=== PATIENT | male | born 1985 | race Caucasian/White ===

== ENCOUNTER 2024-05-08 13:32 | Inpatient (IN) | payer MEDICAID, OTHER ==
[2024-05-08] VITALS (7 sets, daily range): BP systolic 97–129; BP diastolic 63–76; PULSE 95–125; RESP 11–29; TEMP 98.7; O2SAT 98–100
[~2024-05-08] VITALS: Ht 185.4 cm; Wt 82.7 kg
[2024-05-08] MEDS: MIDAZOLAM DRIP 50 mg/50mL 50 ML IV ONE (13:40)
[2024-05-08] MEDS: ETOMIDATE (2MG/ML) 20ML VIAL IV ONE ×2 (13:45)
[2024-05-08] MEDS: SUCCINYLCHOLINE CHLORIDE 20 MG/ML 10ML VIAL IV ONE ×2 (13:45)
[2024-05-08] MEDS: MIDAZOLAM DRIP 50 mg/50mL 50 ML IV SCH (13:45)
[2024-05-08] MEDS ORDERED: MIDAZOLAM DRIP 50 mg/50mL 50 ML IV SCH (13:45)
[2024-05-08] MEDS: SODIUM CHLORIDE 0.9% 1,000 ML IVB ONE (14:06)
[2024-05-08] MEDS: PROPOFOL 100 ML IV ONE (14:21)
[2024-05-08] MEDS: PROPOFOL 100 ML IV SCH (14:23)
[2024-05-08 14:33] LABS: Amphetamine Screen, Urine Neg (NEGATIVE)
[2024-05-08 14:34] LABS: Base Excess -12.3 mmol/L (-2.0-2.0)
[2024-05-08 14:34] LABS: Barbiturate Scree,Urine Neg (NEGATIVE); Benzodiazephine Screen, Urine Neg (NEGATIVE); Cannabinoid Screen, Urine Pos (NEGATIVE); Cocaine Screen, Urine Neg (NEGATIVE); Opiate Scree,Urine Neg (NEGATIVE); Phencyclidine Screen, Urine Neg (NEGATIVE)
[2024-05-08 14:51] LABS: Urine Bacteria FEW /hpf (None Seen); Urine Blood 2+ /uL (Negative); Urine Clarity Clear (Clear); Urine Color Colorless (Yellow); Urine Mucus FEW (None Seen); Urine Protein, UAD 1+ (Negative); Urine Specific Gravity 1.013 (1.001-1.035); Urine Urobilinogen Normal (Negative); Urine WBC 1 /hpf (0 - 3)
[2024-05-08 15:08] LABS: Acetaminophen < 2.0 UG/ML (10.0-20.0)
[2024-05-08 15:09] LABS: Alanine Aminotransferase 69 U/L (7-40); Albumin 5.3 g/dL (3.2-4.8); Alkaline Phosphatase 70 U/L (46-116); Anion Gap 20 (5-15); Aspartate Aminotransferase 44 U/L (13-40); BUN/Creatinine Ratio 10.1 (10.0-20.0); Blood Alcohol < 3.0 mg/dL (<10); Blood Urea Nitrogen 13 mg/dL (9-23); Calcium 9.5 mg/dL (8.5-10.1); Carbon Dioxide 16 mmol/L (20-30); Chloride 105 mmol/L (98-107); Glucose 124 mg/dL (74-106); Magnesium 2.4 mg/dL (1.6-2.6); Potassium 4.3 mmol/L (3.5-5.1); Sodium 141 mmol/L (136-145)
[2024-05-08 15:10] LABS: Bilirubin, Total 0.5 mg/dL (0.2-1.0); Total Protein 8.3 g/dL (5.7-8.2)
[2024-05-08 15:18] LABS: Lactic Acid w/Reflex 12.9 mmol/L (0.4-2.0)
[2024-05-08 15:23] LABS: INR 1.03 (0.9-1.15); Prothrombin Time 10.9 sec (9.3-11.8)
[2024-05-08] MEDS: fentaNYL Drip 2500mCg/250mlNS 250 ML IV SCH (15:28)
[2024-05-08 15:30] LABS: Salicylate < 3.0 mg/dL (2.8-20.0)
[2024-05-08 15:42] LABS: Hematocrit 49.2 % (41.0-53.0); Hemoglobin 16.2 g/dL (13.5-17.5); Mean Corpuscular Hemoglobin 31.3 pg (28.0-32.0); Mean Corpuscular Volume 94.9 fL (80.0-100.0); Red Blood Cells 5.18 10^6/uL (4.5-5.90); Red Cell Distribution Width 13.6 % (11.8-14.3); White Blood Cell 25.8 10^3/uL (4.4-10.8)
[2024-05-08 15:58] LABS: Basophils % (manual) 0 (0.0-2.0); Blast Cells 0; Eosinophils % (manual) 0 (0-7); Metamyelocytes % 0; Myelocytes % 0; Promyelocytes % 0; Reactive Lymphocytes 0
[2024-05-08] MEDS: PIPERACILLIN-TAZOB 3.375GM 100 ML IV ONE (16:03)
[2024-05-08 17:22] LABS: Band Neutrophils % (manual) 3; Lymphocytes % (manual) 14 (10.0-50.0); Monocytes % (manual) 1 (0-12); Platelet Estimate Adequate
[2024-05-08 18:17] LABS: Base Excess -6.7 mmol/L (-2.0-2.0)
[2024-05-08] MEDS ORDERED: MORPHINE SULFATE INJ 2 MG/ml SYRG IV PRN (18:30)
[2024-05-08] MEDS ORDERED: NITROGLYCERIN 0.4 MG SL TAB SL PRN (18:30)
[2024-05-08] MEDS ORDERED: ONDANSETRON HCL 4 MG/2 ML VIAL IV PRN (18:30)
[2024-05-08 18:53] LABS: Hematocrit 45.3 % (41.0-53.0); Hemoglobin 15.3 g/dL (13.5-17.5); Mean Corpuscular Hemoglobin 31.4 pg (28.0-32.0); Mean Corpuscular Hgb Conc. 33.7 g/dL (32.0-36.0); Mean Corpuscular Volume 93.2 fL (80.0-100.0); Red Blood Cells 4.86 10^6/uL (4.5-5.90); Red Cell Distribution Width 13.5 % (11.8-14.3); White Blood Cell 27.5 10^3/uL (4.4-10.8)
[2024-05-08 18:56] LABS: Basophils % (manual) 0 (0.0-2.0); Blast Cells 0; Eosinophils % (manual) 0 (0-7); Metamyelocytes % 0; Myelocytes % 0; Promyelocytes % 0; Reactive Lymphocytes 0
[2024-05-08 19:15] LABS: Alanine Aminotransferase 57 U/L (7-40); Albumin 4.6 g/dL (3.2-4.8); Alkaline Phosphatase 54 U/L (46-116); Anion Gap 9 (5-15); Aspartate Aminotransferase 43 U/L (13-40); BUN/Creatinine Ratio 8.6 (10.0-20.0); Blood Urea Nitrogen 10 mg/dL (9-23); Calcium 9.2 mg/dL (8.5-10.1); Carbon Dioxide 20 mmol/L (20-30); Chloride 110 mmol/L (98-107); Creatine Kinase IFCC 387 U/L (46-171); Glucose 83 mg/dL (74-106); Potassium 4.3 mmol/L (3.5-5.1); Sodium 139 mmol/L (136-145)
[2024-05-08 19:16] LABS: Bilirubin, Total 1.1 mg/dL (0.2-1.0); Total Protein 7.3 g/dL (5.7-8.2)
[2024-05-08 19:25] LABS: Lactic Acid w/Reflex 2.3 mmol/L (0.4-2.0)
[2024-05-08] MEDS: levETIRAcetam 1000 mg/100ml 100 ML IV ONE (19:57)
[2024-05-08] MEDS: SODIUM CHLORIDE 0.9% 2,400 ML IV ONE (19:58)
[2024-05-08 20:16] LABS: Band Neutrophils % (manual) 2; Lymphocytes % (manual) 6 (10.0-50.0); Monocytes % (manual) 8 (0-12); Platelet Estimate Adequate
[2024-05-08] MEDS ORDERED: LORazepam 2MG/ML-1ML VIAL IV PRN (21:45)
[2024-05-08] MEDS: SODIUM CHLOR 0.9% PF (SALINE LOCK) 10ML VIAL/SYR IV SCH (21:58)
[2024-05-08] MEDS: LORazepam 2MG/ML-1ML VIAL IV PRN (22:03)
[2024-05-08] MEDS: LORazepam 2MG/ML-1ML VIAL ONE (22:03)
[2024-05-08] MEDS: FAMOTIDINE (10MG/ML) 2ML VL IV SCH (23:22)
[2024-05-08] MEDS: D5W/SOD CHL 0.45% 1,000 ML IV SCH (23:56)
[2024-05-09] VITALS (14 sets, daily range): BP systolic 87–113; BP diastolic 52–69; PULSE 66–106; RESP 18–21; O2SAT 100
[2024-05-09] MEDS: LORazepam MDV 2MG/ML 50 MG in SODIUM CHL 0.9% 25 ML IV SCH ×2 (00:10→09:57)
[2024-05-09] MEDS: DEXTROSE (50%) 50ML SYRG IV ONE (01:48)
[2024-05-09] MEDS: ACCU-CHEK COMFORT CURVE STRIP VI SCH (01:48)
[2024-05-09 05:20] LABS: Basophils # (auto) 0.1 10 ^3/uL (0-0.2); Basophils % (auto) 0.5 % (0.0-2.0); Eosinophils # (auto) 0 10 ^3/uL (0-0.8); Eosinophils % (auto) 0.2 % (0.0-7.0); Hematocrit 37.1 % (41.0-53.0); Hemoglobin 12.6 g/dL (13.5-17.5); Lymphocytes # (auto) 0.9 10 ^3/uL (0.4-5.4); Lymphocytes % (auto) 5.9 % (10.0-50.0); Mean Corpuscular Hemoglobin 31.4 pg (28.0-32.0); Mean Corpuscular Hgb Conc. 34.1 g/dL (32.0-36.0); Mean Corpuscular Volume 92.1 fL (80.0-100.0); Monocytes # (auto) 1.8 10 ^3/uL (0-1.3); Monocytes % (auto) 11.7 % (0.0-12.0); Neutrophils # (auto) 12.5 10 ^3/uL (1.6-8.6); Neutrophils % (auto) 81.7 % (37.0-80.0); Red Blood Cells 4.03 10^6/uL (4.5-5.90); Red Cell Distribution Width 13.6 % (11.8-14.3); White Blood Cell 15.2 10^3/uL (4.4-10.8)
[2024-05-09 05:43] LABS: Alanine Aminotransferase 40 U/L (7-40); Albumin 3.4 g/dL (3.2-4.8); Alkaline Phosphatase 38 U/L (46-116); Anion Gap 7 (5-15); Aspartate Aminotransferase 37 U/L (13-40); BUN/Creatinine Ratio 7.9 (10.0-20.0); Blood Urea Nitrogen 10 mg/dL (9-23); Calcium 7.4 mg/dL (8.5-10.1); Carbon Dioxide 19 mmol/L (20-30); Chloride 112 mmol/L (98-107); Potassium 3.7 mmol/L (3.5-5.1); Sodium 138 mmol/L (136-145)
[2024-05-09 05:44] LABS: Bilirubin, Total 0.9 mg/dL (0.2-1.0); Glucose 388 mg/dL (74-106); Total Protein 5.5 g/dL (5.7-8.2)
[2024-05-09 06:48] LABS: Base Excess -5.4 mmol/L (-2.0-2.0)
[2024-05-09] MEDS: NOREPINEPHRINE 8 MG/250ML KIT 250 ML IV SCH (07:45)
[2024-05-09] MEDS: ASPirin 325 MG TAB PO ONE (09:31)
[2024-05-09] MEDS: cefTRIAXone 1GM/50ML D5W 50 ML IV SCH (10:40)
[2024-05-09] MEDS: levETIRAcetam 500 mg/100ml 100 ML IV SCH (11:03)
[2024-05-09] MEDS: ENOXAPARIN SOD 80 MG/0.8ML SYRINGE SC SCH (11:04)
[2024-05-09] MEDS: D5W/SOD CHL 0.45% 1,000 ML IV SCH (12:26)
[2024-05-09] MEDS: LORazepam 2MG/ML-1ML VIAL IV PRN (13:41)
[2024-05-09] MEDS: levETIRAcetam 1000 mg/100ml 100 ML IV ONE (18:48)
[2024-05-09] MEDS: DEXTROSE 10% 1,000 ML IV SCH (19:56)
[2024-05-09] MEDS ORDERED: HEPARIN DRIP/D5W 100UNITS/ML 250 ML IV SCH (20:45)
[2024-05-09 21:21] LABS: INR 1.07 (0.9-1.15); Partial Thromboplastin Time 23.4 SEC (24.5-34.5); Prothrombin Time 11.3 sec (9.3-11.8)
[2024-05-09] MEDS: levETIRAcetam 1000 mg/100ml 100 ML IV SCH (21:48)
[2024-05-09] MEDS: PANTOPRAZOLE 40 MG/10 ML VIAL INJ IV SCH (21:48)
[2024-05-09] MEDS: HEPARIN DRIP/D5W 100UNITS/ML 250 ML IV SCH (22:31)
[2024-05-10] VITALS (14 sets, daily range): BP systolic 102–126; BP diastolic 60–78; PULSE 72–102; RESP 18–20; O2SAT 98–100
[2024-05-10] MEDS: diphenhdrAMINE HCL 50 MG/1 ML VL IV ONE (00:52)
[2024-05-10] MEDS: ACETAMINOPHEN 650 MG RECT SUPP PR PRN (04:34)
[2024-05-10 04:58] LABS: INR 1.07 (0.9-1.15); Partial Thromboplastin Time 27.8 SEC (24.5-34.5); Prothrombin Time 11.3 sec (9.3-11.8)
[2024-05-10 07:11] LABS: Chloride 113 mmol/L (98-107); Potassium 3.6 mmol/L (3.5-5.1); Sodium 144 mmol/L (136-145)
[2024-05-10 07:12] LABS: Anion Gap 7 (5-15); Calcium 9.1 mg/dL (8.5-10.1); Carbon Dioxide 24 mmol/L (20-30)
[2024-05-10 07:17] LABS: BUN/Creatinine Ratio 9.7 (10.0-20.0); Blood Urea Nitrogen 10 mg/dL (9-23); Glucose 85 mg/dL (74-106)
[2024-05-10 07:28] LABS: Creatine Kinase IFCC 3373 U/L (46-171)
[2024-05-10 07:30] LABS: Basophils # (auto) 0 10 ^3/uL (0-0.2); Basophils % (auto) 0.3 % (0.0-2.0); Eosinophils # (auto) 0 10 ^3/uL (0-0.8); Eosinophils % (auto) 0.2 % (0.0-7.0); Hematocrit 44.9 % (41.0-53.0); Hemoglobin 14.9 g/dL (13.5-17.5); Lymphocytes # (auto) 0.7 10 ^3/uL (0.4-5.4); Mean Corpuscular Hemoglobin 30.8 pg (28.0-32.0); Mean Corpuscular Hgb Conc. 33.3 g/dL (32.0-36.0); Mean Corpuscular Volume 92.5 fL (80.0-100.0); Monocytes # (auto) 1.9 10 ^3/uL (0-1.3); Monocytes % (auto) 13.5 % (0.0-12.0); Neutrophils # (auto) 11.6 10 ^3/uL (1.6-8.6); Nucleated Red Blood Cells % 0.1 %; Red Blood Cells 4.85 10^6/uL (4.5-5.90); Red Cell Distribution Width 13.8 % (11.8-14.3); White Blood Cell 14.3 10^3/uL (4.4-10.8)
[2024-05-10 08:08] LABS: Erythrocyte Sedimentation Rate 12 mm/hr (0-20)
[2024-05-10] MEDS: IOHEXOL 350 MG/ML 100ML IJ ONE (09:14)
[2024-05-10] MEDS: ASPirin 81 mg TAB PO SCH (09:41)
[2024-05-10] MEDS: ENOXAPARIN SOD 80 MG/0.8ML SYRINGE SC SCH (09:41)
[2024-05-11] VITALS (12 sets, daily range): BP systolic 103–141; BP diastolic 67–87; PULSE 84–106; RESP 12–24; TEMP 98.8; O2SAT 30–100
[2024-05-11] MEDS ORDERED: ASPirin 81 mg TAB PO SCH (10:00)
[2024-05-11 11:13] LABS: Base Excess 4.7 mmol/L (-2.0-2.0)
[2024-05-11] MEDS: LORazepam 2MG/ML-1ML VIAL IV ONE (12:00)
[2024-05-11 12:52] LABS: Basophils # (auto) 0 10 ^3/uL (0-0.2); Basophils % (auto) 0.2 % (0.0-2.0); Eosinophils # (auto) 0 10 ^3/uL (0-0.8); Hematocrit 37.4 % (41.0-53.0); Hemoglobin 12.6 g/dL (13.5-17.5); Lymphocytes # (auto) 0.6 10 ^3/uL (0.4-5.4); Lymphocytes % (auto) 4.2 % (10.0-50.0); Mean Corpuscular Hemoglobin 30.8 pg (28.0-32.0); Mean Corpuscular Hgb Conc. 33.7 g/dL (32.0-36.0); Mean Corpuscular Volume 91.3 fL (80.0-100.0); Monocytes # (auto) 1.3 10 ^3/uL (0-1.3); Neutrophils # (auto) 11.4 10 ^3/uL (1.6-8.6); Neutrophils % (auto) 85.6 % (37.0-80.0); Red Cell Distribution Width 13.3 % (11.8-14.3); White Blood Cell 13.3 10^3/uL (4.4-10.8)
[2024-05-11 12:54] LABS: Chloride 107 mmol/L (98-107); Potassium 2.8 mmol/L (3.5-5.1); Sodium 139 mmol/L (136-145)
[2024-05-11 12:55] LABS: Anion Gap 5 (5-15); Calcium 9.3 mg/dL (8.7-10.4); Carbon Dioxide 27 mmol/L (20-30)
[2024-05-11 13:00] LABS: Glucose 117 mg/dL (74-106)
[2024-05-11 13:01] LABS: BUN/Creatinine Ratio 5.7 (10.0-20.0); Blood Urea Nitrogen < 5 mg/dL (9-23)
[2024-05-11] MEDS: HALOPERIDOL LACTATE 5 MG/ML INJ VIAL IV PRN (20:50)
[2024-05-11] MEDS: POTASSIUM CHL 20 Meq TABLET PO ONE (22:43)
[2024-05-12] VITALS (8 sets, daily range): BP systolic 114–129; BP diastolic 73–87; PULSE 78–94; RESP 17–20; TEMP 98–99.1; O2SAT 94–99
[2024-05-12 06:05] LABS: Basophils # (auto) 0 10 ^3/uL (0-0.2); Basophils % (auto) 0.3 % (0.0-2.0); Eosinophils # (auto) 0.1 10 ^3/uL (0-0.8); Eosinophils % (auto) 0.7 % (0.0-7.0); Hematocrit 34.5 % (41.0-53.0); Hemoglobin 12.4 g/dL (13.5-17.5); Lymphocytes # (auto) 1.2 10 ^3/uL (0.4-5.4); Lymphocytes % (auto) 9.6 % (10.0-50.0); Mean Corpuscular Hemoglobin 32.3 pg (28.0-32.0); Mean Corpuscular Hgb Conc. 35.9 g/dL (32.0-36.0); Mean Corpuscular Volume 89.7 fL (80.0-100.0); Monocytes # (auto) 1.3 10 ^3/uL (0-1.3); Monocytes % (auto) 10.6 % (0.0-12.0); Neutrophils # (auto) 9.8 10 ^3/uL (1.6-8.6); Neutrophils % (auto) 78.8 % (37.0-80.0); Red Blood Cells 3.84 10^6/uL (4.5-5.90); White Blood Cell 12.5 10^3/uL (4.4-10.8)
[2024-05-12 06:09] LABS: Anion Gap 5 (5-15); Calcium 9.1 mg/dL (8.5-10.1); Carbon Dioxide 29 mmol/L (20-30); Chloride 107 mmol/L (98-107); Potassium 2.9 mmol/L (3.5-5.1); Sodium 141 mmol/L (136-145)
[2024-05-12 06:16] LABS: Glucose 99 mg/dL (74-106)
[2024-05-12 06:17] LABS: BUN/Creatinine Ratio 5.9 (10.0-20.0); Blood Urea Nitrogen < 5 mg/dL (9-23)
[2024-05-12] MEDS: POTASSIUM EFFERVESENT TAB 25 MEQ PO ONE (09:16)
[2024-05-12] MEDS: SOD CHL 0.9%/ KCL 40MEQ 1,000 ML IV ONE (09:27)
[2024-05-13 01:00] VITALS: BP 125/81; PULSE 81; RESP 18; TEMP 98.9; O2SAT 93
[2024-05-13 05:00] VITALS: BP 124/81; PULSE 79; RESP 18; TEMP 98.7; O2SAT 96
[2024-05-13 06:35] LABS: Anion Gap 8 (5-15); Calcium 9.4 mg/dL (8.5-10.1); Carbon Dioxide 27 mmol/L (20-30); Chloride 107 mmol/L (98-107); Potassium 3.5 mmol/L (3.5-5.1); Sodium 142 mmol/L (136-145)
[2024-05-13 06:41] LABS: BUN/Creatinine Ratio 6.7 (10.0-20.0); Basophils # (auto) 0 10 ^3/uL (0-0.2); Basophils % (auto) 0.5 % (0.0-2.0); Blood Urea Nitrogen 6 mg/dL (9-23); Eosinophils # (auto) 0.1 10 ^3/uL (0-0.8); Eosinophils % (auto) 1.2 % (0.0-7.0); Glucose 87 mg/dL (74-106); Hematocrit 35.5 % (41.0-53.0); Hemoglobin 12.5 g/dL (13.5-17.5); Lymphocytes # (auto) 1.1 10 ^3/uL (0.4-5.4); Lymphocytes % (auto) 11.9 % (10.0-50.0); Mean Corpuscular Hemoglobin 31.6 pg (28.0-32.0); Mean Corpuscular Hgb Conc. 35.3 g/dL (32.0-36.0); Mean Corpuscular Volume 89.6 fL (80.0-100.0); Monocytes % (auto) 10.4 % (0.0-12.0); Neutrophils # (auto) 7.1 10 ^3/uL (1.6-8.6); Red Blood Cells 3.96 10^6/uL (4.5-5.90); Red Cell Distribution Width 12.7 % (11.8-14.3); White Blood Cell 9.4 10^3/uL (4.4-10.8)
[2024-05-13 08:40] VITALS: BP 121/85; PULSE 73; RESP 16; TEMP 98.6; O2SAT 94
[2024-05-13 12:45] VITALS: BP 137/91; PULSE 66; RESP 20; TEMP 99.1; O2SAT 96
[2024-05-13] MEDS ORDERED: LEVO500T91 PO (13:46)
[2024-05-13] MEDS ORDERED: KEP500T PO (13:46)
[2024-05-13] MEDS ORDERED: CEFD300C2 PO (15:37)
[2024-05-13 16:35] VITALS: BP 132/93; PULSE 61; RESP 18; TEMP 98.8; O2SAT 97
== END 2024-05-13 19:19 | disposition home or self-care (01) | DRG 720 ==
LOC: EDBD 13:32 → ER 13:37 → TELE 18:23 → TELE-CENTR 05-11 22:57 → CENTRAL 05-13 05:01
PROVIDERS: ADMIT Nurse Practitioner Family; ATTEND Nurse Practitioner Acute Care
PROC: 5A1945Z Respiratory Ventilation, 24-96 Consecutive Hours (ICD-10-PCS; principal; 2024-05-08)
PROC: 0BH17EZ Insertion of Endotracheal Airway into Trachea, Via Natural or Artificial Opening (ICD-10-PCS; 2024-05-08)
DX: A41.89 Other specified sepsis (principal); J96.00 Acute respiratory failure, unspecified whether with hypoxia or hypercapnia; G92.8 Other toxic encephalopathy; J15.0 Pneumonia due to Klebsiella pneumoniae; G40.401 Other generalized epilepsy and epileptic syndromes, not intractable, with status epilepticus; E87.20 Acidosis, unspecified; G93.1 Anoxic brain damage, not elsewhere classified; D72.829 Elevated white blood cell count, unspecified; G89.29 Other chronic pain; M54.50 Low back pain, unspecified; E16.2 Hypoglycemia, unspecified; Z82.49 Family history of ischemic heart disease and other diseases of the circulatory system; Z80.1 Family history of malignant neoplasm of trachea, bronchus and lung; Z83.3 Family history of diabetes mellitus; Z87.891 Personal history of nicotine dependence
CPT/HCPCS: 31500; 36415; 36600; 70450; 70551; 71045; 71275; 80048; 80053; 80307; 80320; 80329; 81001; 82550; 82805; 82962; 83036; 83605; 83735; 84146; 84484; 85007; 85025; 85027; 85379; 85610; 85652; 85730; 86141; 87040; 87070; 87077; 87086; 87186; 87205; 93005; 93306; 94002; 94003; 94640; 95819; C9113; G0378; J2543; J2704; J3490; J7060

== ENCOUNTER → 2024-06-15 | Outpatient (CLI) | payer MEDICAID ==
[~2024-06-15] MED LIST: CEFD300C2 PO; KEP500T PO
[2024-06-15 06:44] LABS: Basophils # (auto) 0.1 10 ^3/uL (0-0.2); Eosinophils # (auto) 0.2 10 ^3/uL (0-0.8); Eosinophils % (auto) 3.6 % (0.0-7.0); Hemoglobin 14.4 g/dL (13.5-17.5); Lymphocytes # (auto) 1.8 10 ^3/uL (0.4-5.4); Lymphocytes % (auto) 29.2 % (10.0-50.0); Mean Corpuscular Hemoglobin 32.1 pg (28.0-32.0); Mean Corpuscular Hgb Conc. 35.2 g/dL (32.0-36.0); Mean Corpuscular Volume 91.3 fL (80.0-100.0); Monocytes # (auto) 0.5 10 ^3/uL (0-1.3); Monocytes % (auto) 8.2 % (0.0-12.0); Neutrophils # (auto) 3.7 10 ^3/uL (1.6-8.6); Nucleated Red Blood Cells % 0.1 %; Red Blood Cells 4.49 10^6/uL (4.5-5.90); Red Cell Distribution Width 13.5 % (11.8-14.3); White Blood Cell 6.3 10^3/uL (4.4-10.8)
[2024-06-15 07:13] LABS: Alanine Aminotransferase 70 U/L (7-40); Albumin 4.3 g/dL (3.2-4.8); Alkaline Phosphatase 52 U/L (46-116); Anion Gap 4 (5-15); Aspartate Aminotransferase 28 U/L (13-40); Blood Urea Nitrogen 10 mg/dL (9-23); Calcium 9.7 mg/dL (8.7-10.4); Carbon Dioxide 30 mmol/L (20-30); Chloride 105 mmol/L (98-107); Creatine Kinase IFCC 114 U/L (46-171); Glucose 64 mg/dL (74-106); Potassium 3.8 mmol/L (3.5-5.1); Sodium 139 mmol/L (136-145)
[2024-06-15 07:14] LABS: Bilirubin, Total 1.1 mg/dL (0.2-1.0); Total Protein 6.9 g/dL (5.7-8.2)
[2024-06-15 08:44] LABS: BUN/Creatinine Ratio 9.4 (10.0-20.0)
== END | disposition home or self-care (01) ==
LOC: LAB 06:28
PROVIDERS: ATTEND Internal Medicine
DX: G92.8 Other toxic encephalopathy (principal); M54.50 Low back pain, unspecified
CPT/HCPCS: 36415; 80053; 82550; 84484; 85025

== ENCOUNTER → 2024-06-22 | Outpatient (CLI) | payer MEDICAID | END | disposition home or self-care (01) | LOC: XYW 09:20 | PROVIDERS: ATTEND Internal Medicine | DX: I21.A1 Myocardial infarction type 2 (principal) | CPT/HCPCS: 93306 ==

== ENCOUNTER → 2024-09-04 | Outpatient (CLI) | payer MEDICAID | END | disposition home or self-care (01) | LOC: Rad HDHVI 08:02 | PROVIDERS: ATTEND Internal Medicine Cardiovascular Disease | DX: I10 Essential (primary) hypertension (principal) | CPT/HCPCS: 93306 ==

== ENCOUNTER → 2024-09-15 | Outpatient (CLI) | payer MEDICAID ==
[~2024-09-15] VITALS: Ht 182.9 cm; Wt 88.9 kg
== END | disposition home or self-care (01) ==
LOC: Rad HDHVI 09:51
PROVIDERS: ATTEND Internal Medicine Cardiovascular Disease
DX: I25.5 Ischemic cardiomyopathy (principal); I46.9 Cardiac arrest, cause unspecified; R79.89 Other specified abnormal findings of blood chemistry; G92.8 Other toxic encephalopathy
CPT/HCPCS: 78452; 93017; 96374; A9500

== ENCOUNTER → 2024-11-09 | Outpatient (CLI) | payer MEDICAID ==
[2024-11-09 09:17] LABS: Alanine Aminotransferase 19 U/L (7-40); Albumin 4.6 g/dL (3.2-4.8); Alkaline Phosphatase 50 U/L (46-116); Anion Gap 4 (5-15); Aspartate Aminotransferase 20 U/L (13-40); BUN/Creatinine Ratio 6.9 (10.0-20.0); CRP High Sensitivity 0.02 mg/dL (<1.0); Calcium 10.4 mg/dL (8.7-10.4); Chloride 106 mmol/L (98-107); Glucose 89 mg/dL (74-106); Potassium 4.5 mmol/L (3.5-5.1); Sodium 142 mmol/L (136-145)
[2024-11-09 09:18] LABS: Total Protein 7.2 g/dL (5.7-8.2)
[2024-11-09 09:21] LABS: Blood Urea Nitrogen 7 mg/dL (9-23); Carbon Dioxide 32 mmol/L (20-31)
[2024-11-09 09:36] LABS: Uric Acid 5.6 mg/dL (3.7-9.2)
== END | disposition home or self-care (01) ==
LOC: LAB 08:30
PROVIDERS: ATTEND Internal Medicine
DX: G40.909 Epilepsy, unspecified, not intractable, without status epilepticus (principal); R00.2 Palpitations; R91.8 Other nonspecific abnormal finding of lung field; R91.1 Solitary pulmonary nodule
CPT/HCPCS: 36415; 80053; 83036; 84550; 86141

== ENCOUNTER 2025-06-15 09:29 | Inpatient (IN) | payer MEDICAID ==
[~2025-06-15] VITALS: Ht 182.9 cm; Wt 82.0 kg
[2025-06-15] MEDS: NALOXONE HCL 1MG/ML 2ML SYRINGE ONE (09:53)
[2025-06-15] MEDS: NALOXONE HCL 1MG/ML 2ML SYRINGE IV ONE (09:54)
[2025-06-15 10:00] VITALS: PULSE 103; RESP 18; O2SAT 100
[2025-06-15 10:24] LABS: Hematocrit 44.4 % (41.0-53.0); Hemoglobin 14.9 g/dL (13.5-17.5); Mean Corpuscular Hemoglobin 30.8 pg (28.0-32.0); Mean Corpuscular Volume 91.7 fL (80.0-100.0)
[2025-06-15 10:32] LABS: Anion Gap 15 (5-15); Carbon Dioxide 22 mmol/L (20-31); Chloride 107 mmol/L (98-107); Potassium 4.4 mmol/L (3.5-5.1); Sodium 144 mmol/L (136-145)
[2025-06-15 10:33] LABS: Calcium 10.0 mg/dL (8.7-10.4)
[2025-06-15 10:38] LABS: BUN/Creatinine Ratio 7.5 (10.0-20.0); Blood Urea Nitrogen 9 mg/dL (9-23); Glucose 102 mg/dL (74-106)
[2025-06-15] MEDS: SODIUM CHLORIDE 0.9% 2,350 ML IV ONE (10:51)
[2025-06-15] MEDS: LORazepam 2MG/ML-1ML VIAL IV ONE (10:52)
[2025-06-15 10:57] LABS: Urine Protein, UAD TRACE (Negative)
[2025-06-15 10:59] LABS: Cannabinoid Screen, Urine Pos (NEGATIVE)
[2025-06-15 11:08] LABS: Total Cells Counted 100.0 (100)
[2025-06-15] MEDS: SODIUM CHLORIDE 0.9% 1,000 ML IV ONE ×2 (11:12→11:45)
[2025-06-15] MEDS: HALOPERIDOL LACTATE 5 MG/ML INJ VIAL IM ONE (11:15)
[2025-06-15] MEDS: cefTRIAXone 1GM/50ML D5W 50 ML IV ONE (11:19)
[2025-06-15 11:20] LABS: Amphetamine Screen, Urine Neg (NEGATIVE); Barbiturate Scree,Urine Neg (NEGATIVE); Benzodiazephine Screen, Urine Pos (NEGATIVE); Cocaine Screen, Urine Neg (NEGATIVE); Opiate Scree,Urine Neg (NEGATIVE); Phencyclidine Screen, Urine Neg (NEGATIVE)
[2025-06-15] MEDS: diphenhdrAMINE HCL 50 MG/1 ML VL IV ONE (12:00)
--- NOTE | 2025-06-15 12:27 | DVH ---
EXAM: XY CHEST XRAY 1 VIEW Indication: ALOC Technique: Single frontal view of the chest was obtained Comparison: XY CHEST PORTABLE on DOS: 05/12/24, XY CHEST XRAY 1 VIEW on DOS: 05/10/24, XY CHEST PORTABL E on DOS: 05/09/24, XY CHEST PORTABLE on DOS: 05/08/24 FINDINGS: Lines and Tubes: None Lungs: Mild interstitial opacities. Pleura: No effusion. No pneumothorax. Cardiomediastinal contours: Unremarkable Bones: No acute osseous abnormality. IMPRESSION: Mild interstitial opacities suggestive of pulmonary edema or atypical infection.
[2025-06-15 12:35] LABS: Lactic Acid w/Reflex 3.0 mmol/L (0.4-2.0)
--- NOTE | 2025-06-15 12:41 | ED.PDOC ---
History of Present Illness HPI Comments 39-year-old male brought by paramedics because he was found altered by his mother in the morning when she went into the room. Last seen normal last night. Patient does have a history of seizures. He uses marijuana and pain medication. He has not had a seizure for more than a year. When the mother went into the room he had his clothes off not responding. Mother did give Versed prior to test skein winder arrival. He was only responding to painful stimuli. Unable to get any other history. Chief Complaint: ALOC Time Seen by MD: 09:38 Primary Care Provider: UNKNOWN Reviewed Notes: Nurses Notes, Medications, Allergies Allergies: Coded Allergies: Heparin (Verified Adverse Reaction, Intermediate, 05/13/24) Home Meds Active Scripts Cefdinir (Cefdinir) 300 Mg Cap, 1 CAP PO BID for 7 Days, #14 CAP Prov:ANGEL NAZARIO PERSONAL PROTECTION SPECIALIST 05/13/24 Levetiracetam (KEPPRA TABLET) 500 Mg Tb, 500 MG PO BID for 60 Days, #120 TAB Prov:ANGEL NAZARIO NP 05/13/24 Information Source: Emergency Med Personnel Mode of Arrival: EMS Severity: Moderate Timing: Hours Duration: Since onset Past Medical History PAST MEDICAL HISTORY: Unknown Surgical History: Unknown Family History Family History: Unknown Social History Smoker: Unknown Alcohol: Unknown Drugs: Unknown Lives In: Unknown Unable to Obtain due to: Altered Mental Status Physical Exam General Appearance: Moderate Distress HEENT: Normal ENT Inspection, Pharynx Normal, TMs Normal Neck: Full Range of Motion, Non-Tender, Normal, Normal Inspection Respiratory: Chest Non-Tender, Lungs Clear, No Accessory Muscle Use, No Respiratory Distress, Normal Breath Sounds Cardiovascular: No Edema, No JVD, No Murmur, No Gallop, Normal Peripheral Pulses, Regular Rate/Rhythm Breast Exam: Deferred Gastrointestinal: No Organomegaly, Non Tender, No Pulsatile Mass, Normal Bowel Sounds, Soft Genitalia: Deferred Pelvic: Deferred Rectal: Deferred Extremities: No calf tenderness, No pedal edema Musculoskeletal : Apperance: Normal Neurologic: Disoriented Cerebellar Function: NOT DONE Reflexes: NOT DONE Skin: Dry, Normal Color, Warm Peripheral Pulses: 3+ Radial (R), 3+ Radial (L) Lymphatic: No Adenopathy Was a procedure done? Was a procedure done?: No Differential Dx Considerations may include: Metabolic encephalopathy Electrolyte imbalance X-Ray, Labs, Meds, VS Vital Signs Date Time Temp Pulse Resp B/P (MAP) Pulse Ox O2 Delivery O2 Flow Rate FiO2 06/15/25 13:06 107 16 116/65 (82) 99 06/15/25 12:00 115 06/15/25 10:00 98.4 103 18 103/63 (76) 100 98.4 06/15/25 10:00 103 18 100 Nasal Cannula* 4 36 06/15/25 09:59 67 06/15/25 09:38 98.8 135 15 96 98.8 Lab Test 06/15/25 13:00 06/15/25 11:15 06/15/25 11:00 06/15/25 10:02 Range/Units Lactic Acid Level 2.1 *H 3.0 *H 0.4-2.0 mmol/L Urine Opiates Screen Neg NEGATIVE Urine Fentanyl Screen Neg NEGATIVE Urine Barbiturates Screen Neg NEGATIVE Urine Phencyclidine Screen Neg NEGATIVE Urine Amphetamines Screen Neg NEGATIVE Urine Benzodiazepines Screen Pos NEGATIVE Urine Cocaine Screen Neg NEGATIVE Urine Cannabinoids Screen Pos NEGATIVE White Blood Count 32.4 *H 4.4-10.8 10^3/uL Red Blood Count 4.84 4.5-5.90 10^6/uL Hemoglobin 14.9 13.5-17.5 g/dL Hematocrit 44.4 41.0-53.0 % Mean Corpuscular Volume 91.7 80.0-100.0 fL Mean Corpuscular Hemoglobin 30.8 28.0-32.0 pg Mean Corpuscular Hemoglobin Concent 33.6 32.0-36.0 g/dL Red Cell Distribution Width 13.8 11.8-14.3 % Platelet Count 198 140-450 10^3/uL Mean Platelet Volume 9.9 6.9-10.8 fL Neutrophils (%) (Auto) 37.0-80.0 % Lymphocytes (%) (Auto) 10.0-50.0 % Monocytes (%) (Auto) 0.0-12.0 % Basophils (%) (Auto) 0.0-2.0 % Neutrophils # (Auto) 1.6-8.6 10 ^3/uL Lymphocytes # (Auto) 0.4-5.4 10 ^3/uL Monocytes # (Auto) 0-1.3 10 ^3/uL Differential Total Cells Counted 100.0 100 Neutrophils % (Manual) 90 H 37.0-80.0 Band Neutrophils % (Manual) 0 Lymphocytes % (Manual) 1 L 10.0-50.0 Monocytes % (Manual) 9 0-12 Eosinophils % (Manual) 0 0-7 Basophils % (Manual) 0 0.0-2.0 Metamyelocytes % (manual) 0 Myelocytes % (Manual) 0 Promyelocytes % (Manual) 0 Blast Cells % (Manual) 0 Reactive Lymphocytes 0 Platelet Estimate Adequate Sodium Level 144 136-145 mmol/L Potassium Level 4.4 3.5-5.1 mmol/L Chloride Level 107 98-107 mmol/L Carbon Dioxide Level 22 20-31 mmol/L Anion Gap 15 5-15 Blood Urea Nitrogen 9 9-23 mg/dL Creatinine 1.20 0.700-1.30 mg/dL Glomerular Filtration Rate Calc 79 >90 mL/min BUN/Creatinine Ratio 7.5 L 10.0-20.0 Serum Glucose 102 74-106 mg/dL Calcium Level 10.0 8.7-10.4 mg/dL Plasma/Serum Blood Alcohol < 3.0 <10 mg/dL Test 06/15/25 10:00 Range/Units Urine Color Colorless Yellow Urine Clarity Clear Clear Urine pH 5.0 5.0-9.0 Urine Specific [place] 1.014 1.001-1.035 Urine Protein Trace H Negative Urine Ketones 1+ H Negative Urine Blood 2+ H Negative /uL Urine Nitrite Negative Negative Urine Bilirubin Negative Negative Urine Urobilinogen Normal Negative mg/dL Urine Leukocyte Esterase Negative Negative /uL Urine RBC 1 0 - 3 /hpf Urine Microscopic WBC 1 0-3 /HPF Urine Squamous Epithelial Cells None seen <5 /hpf Urine Bacteria None seen None Seen /hpf Urine Glucose Normal Normal mg/dL Current Medications Medications (Trade) Dose Ordered Sig/Richard Route Start Time Stop Time Status Last Admin Naloxone HCl (Narcan) 2 mg ONCE ONCE IV 06/15/25 10:00 06/15/25 10:01 DC 06/15/25 09:54 Ceftriaxone Sodium 50 ml @ 100 mls/hr ONCE ONCE IV 06/15/25 10:45 06/15/25 11:14 DC 06/15/25 11:19 Metronidazole 100 ml @ 100 mls/hr ONCE ONCE IV 06/15/25 10:45 06/15/25 11:44 DC 06/15/25 11:45 Sodium Chloride 1,000 ml @ 150 mls/hr Q6H40M ONCE IV 06/15/25 10:45 06/15/25 17:24 DC 06/15/25 11:45 Sodium Chloride 2,350 ml @ 2,350 mls/hr ONCE ONCE IV 06/15/25 10:45 06/15/25 11:44 DC 06/15/25 10:51 Lorazepam (Ativan Inj) 1 mg ONCE ONCE IV 06/15/25 11:00 06/15/25 11:01 DC 06/15/25 10:52 Haloperidol Lactate (Haldol) 10 mg ONCE ONCE IM 06/15/25 11:15 06/15/25 11:16 DC 06/15/25 11:15 Diphenhydramine HCl (Benadryl Injection) 50 mg ONCE ONCE IV 06/15/25 12:00 06/15/25 12:01 DC 06/15/25 12:00 Patient disoriented. Moving all extremities. Was given Narcan. Establish intravenous access. Was given fluids. Was given Rocephin. Was given Flagyl. Had to put him on restraints because he was aggressive. Possible sepsis. WBC elevated pain He does have marijuana in his system. Waiting for family. Continue to monitor. [place] [id number] Ph: [phone] DIAGNOSTIC IMAGING Diagnostic Imaging Report : [id number] Signed PATIENT: LISA YATESACCT: [id number] UNIT: [id number] : 1985 LOC: ER ROOM / BED: / AGE / SEX: 39 / M ADM STATUS: REG ER SERVICE [id number] ORDERING PHYSICIAN: REY HOOVER MD PROCEDURE(s): HWOCT - HEAD WITHOUT CONTRAST REASON: altered ORDER NUMBER(s): [id number], ACCESSION NUMBER(s): [id number] CLINICAL INFORMATION: Altered mental status. TECHNIQUE: Axial imaging was obtained through the brain without contrast. Coronal and sagittal reformatted images were obtained, reviewed, and stored. Images were reviewed in brain and bone windows. All CT scans at this medical facility are performed using dose modulation techniques as appropriate to a performed exam including the following: Automated exposure control was utilized; adjustment of the MA and/or KV according to patient size; and use of iterative reconstruction technique. CTDIvol = 10.91, 57.18, 0.07, 0.07 mGy DLP = 1834.35. mGy-cm COMPARISON: CT HEAD WITHOUT CONTRAST on DOS: 05/08/24 FINDINGS: There is no acute intracranial hemorrhage. No mass effect or midline shift. The ventricles and sulci are within normal limits in size for age. Basal cisterns are patent. The calvarium is unremarkable. Mild mucosal thickening of the paranasal sinuses. Small retention cyst versus polyp in the right maxillary sinus. Mastoid air cells are clear. IMPRESSION: No CT evidence of acute intracranial abnormality. ATED BY: HE PEDERSON DO DICTATED DATE/TIME: 06/15/25 1306 SIGNED BY: HE PEDERSON DO SIGNED DATE/TIME: 06/15/25 1306 CC: [place] [id number] Ph: [phone] DIAGNOSTIC IMAGING Diagnostic Imaging Report : [id number] Signed PATIENT: LISA YATESACCT: [id number] UNIT: [id number] : 1985 LOC: ER ROOM / BED: / AGE / SEX: 39 / M ADM STATUS: REG ER SERVICE 1039 ORDERING PHYSICIAN: REY HOOVER MD PROCEDURE(s): ABPL - CT AB PEL WO CON-NO ORAL OR IV REASON: colitis ORDER NUMBER(s): [id number], ACCESSION NUMBER(s): [id number] CLINICAL INFORMATION: Colitis. TECHNIQUE: Axial CT images of the abdomen and pelvis were obtained without IV contrast. Coronal and sagittal reformatted images were obtained, reviewed, and stored. Evaluation of the parenchymal organs is limited without IV contrast. Evaluation of the bowel and mesentery is limited without oral contrast. All CT scans at this medical facility are performed using dose modulation techniques as appropriate to a performed exam including the following: Automated exposure control was utilized; adjustment of the MA and/or KV according to patient size; and use of iterative reconstruction technique. CTDIvol = none available at the time of dictation. mGy DLP = not available at the time of dictation. COMPARISON: None FINDINGS: Motion artifact limits evaluation. Examination is also limited due to beam hardening artifact from the patient being scanned with arms at sides. Lung bases: There are partially visualized focal areas of consolidation in the lower lobes bilaterally. Liver: Grossly unremarkable given the limitations of the examination. Biliary: No calcified gallstones or biliary ductal dilatation. Spleen: Unremarkable. Pancreas: Grossly unremarkable in its noncontrast enhanced appearance. Adrenal glands: Unremarkable. No mass. Kidneys: No hydronephrosis. No renal or ureteral calculi. Aorta/Vascular: No aneurysm or significant calcification. Retroperitoneum: No mass or lymphadenopathy. Bowel/mesentery: No small bowel obstruction. Appendix is visualized and appears grossly unremarkable without visualized evidence for acute appendicitis. Moderate stool in the colon. Pelvic organs: Grossly unremarkable. Bladder: Mercedes catheter in the bladder. Moderate circumferential thickening of the bladder wall. Abdominal wall: No mass or hernia. Bones: No acute fracture or suspicious intraosseous lesion. IMPRESSION: 1. Limited examination due to motion artifact and beam hardening artifact as well as lack of intravenous or oral contrast. 2. Moderate circumferential thickening of the bladder wall with mercdees catheter in place. Correlate clinically to exclude cystitis. 3. No small bowel obstruction. 4. No CT evidence for acute appendicitis given the limitations of the examination. 5. Focal areas of consolidation in the lower lobes bilaterally, may be seen with pneumonia or aspiration in the appropriate clinical setting. ATED BY: HE PEDERSON DO DICTATED DATE/TIME: 06/15/25 132 SIGNED BY: HE PEDERSON DO SIGNED DATE/TIME: 06/15/25 132 CC: [place] [id number] Ph: [phone] DIAGNOSTIC IMAGING Diagnostic Imaging Report : [id number] Signed PATIENT: LISA YATESACCT: [id number] UNIT: [id number] : 1985 LOC: ER ROOM / BED: / AGE / SEX: 39 / M ADM STATUS: REG ER SERVICE 1156 ORDERING PHYSICIAN: REY HOOVER MD PROCEDURE(s): CXR1 - CHEST XRAY 1 VIEW REASON: ALOC ORDER NUMBER(s): [id number], ACCESSION NUMBER(s): [id number] EXAM: XY CHEST XRAY 1 VIEW Indication: ALOC Technique: Single frontal view of the chest was obtained Comparison: XY CHEST PORTABLE on DOS: 05/12/24, XY CHEST XRAY 1 VIEW on DOS: 05/10/24, XY CHEST PORTABLE on DOS: 05/09/24, XY CHEST PORTABLE on DOS: 05/08/24 FINDINGS: Lines and Tubes: None Lungs: Mild interstitial opacities. Pleura: No effusion. No pneumothorax. Cardiomediastinal contours: Unremarkable Bones: No acute osseous abnormality. IMPRESSION: Mild interstitial opacities suggestive of pulmonary edema or atypical infection. ATED BY: YUE REID MD DICTATED DATE/TIME: 06/15/251224 SIGNED BY: YUE REID MD SIGNED DATE/TIME: 06/15/251224 CC: Time of 1ST Reevaluation: 12:38 Reevaluation 1ST: Unchanged Patient Education/Counseling: Pt Unresponsive Family Education/Counseling: No Family Present SEPSIS Sepsis Screen Date sepsis recognized/suspect: Jun 15, 2025 Time Sepsis recognized/suspect: 935 Recent Procedure: No On Antibiotic Therapy: No Respiratory Rate >20: No Heart Rate >90: No Temp<36 C (96.8 F) or >38.3 C: No SBP <90 or MAP <65 mmHG: No New Acute Mental Status Change: No Is the patient on CPAP, BIPAP,: No Physician Orders Head Without Contrast (06/15/25 09:48) Youth Pastor (06/15/25 09:48) Ct Ab Pel Wo Con-No Oral Or Iv (06/15/25 10:39) Blood Culture (06/15/25 10:39) Chest Xray 1 View (06/15/25 11:56) Behavioral Restraints (06/15/25 10:34) Vital Signs Date Time Temp Pulse Resp B/P (MAP) Pulse Ox O2 Delivery O2 Flow Rate FiO2 06/15/25 13:06 107 16 116/65 (82) 99 06/15/25 12:00 115 06/15/25 10:00 98.4 103 18 103/63 (76) 100 98.4 06/15/25 10:00 103 18 100 Nasal Cannula* 4 36 06/15/25 09:59 67 06/15/25 09:38 98.8 135 15 96 98.8 Laboratory Tests Test 06/15/25 10:02 06/15/25 11:15 06/15/25 13:00 White Blood Count 32.4 10^3/uL (4.4-10.8) *H Lactic Acid Level 3.0 mmol/L (0.4-2.0) *H 2.1 mmol/L (0.4-2.0) *H Medications Medications Dose Ordered Sig/Richard Route Start Time Stop Time Status Last Admin Dose Admin Ceftriaxone Sodium 50 ml @ 100 mls/hr ONCE ONCE IV 06/15/25 10:45 06/15/25 11:14 DC 06/15/25 11:19 Diphenhydramine HCl 50 mg ONCE ONCE IV 06/15/25 12:00 06/15/25 12:01 DC 06/15/25 12:00 Haloperidol Lactate 10 mg ONCE ONCE IM 06/15/25 11:15 06/15/25 11:16 DC 06/15/25 11:15 Lorazepam 1 mg ONCE ONCE IV 06/15/25 11:00 06/15/25 11:01 DC 06/15/25 10:52 Metronidazole 100 ml @ 100 mls/hr ONCE ONCE IV 06/15/25 10:45 06/15/25 11:44 DC 06/15/25 11:45 Naloxone HCl 2 mg ONCE ONCE IV 06/15/25 10:00 06/15/25 10:01 DC 06/15/25 09:54 Sodium Chloride 1,000 ml @ 150 mls/hr Q6H40M ONCE IV 06/15/25 10:45 06/15/25 17:24 DC 06/15/25 11:45 Sodium Chloride 2,350 ml @ 2,350 mls/hr ONCE ONCE IV 06/15/25 10:45 06/15/25 11:44 DC 06/15/25 10:51 Departure 1 Departure Time of Disposition: 12:40 Impression: Primary Impression: Metabolic encephalopathy Additional Impression: Sepsis, unspecified organism Qualified Codes: A41.9 - Sepsis, unspecified organism Disposition: ADMITTED INPATIENT Admit to: Med Surg Condition: Guarded Critical Care Note Critical Care Time?: Yes (90 min-critical care time only) Critical care comment: Continue to monitor Stability Stability form required: No Heart Score Heart Score: Heart Score Response (Comments) Value History N/A 0 EKG N/A 0 Age N/A 0 Risk Factors N/A 0 Troponin N/A 0 Total 0 I personally scribed for REY HOOVER MD ([email or web address]) on 06/15/25 at 14:22. Electronically submitted by [employer] ([email or web address]). I personally scribed for REY HOOVER MD ([email or web address]) on 06/15/25 at 14:23. Electronically submitted by [employer] ([email or web address]). I personally scribed for REY HOOVER MD ([email or web address]) on 06/15/25 at 14:24. Electronically submitted by [employer] ([email or web address]). REY HOOVER MD Jun 15, 2025 12:41
--- NOTE | 2025-06-15 13:09 | DVH ---
CLINICAL INFORMATION: Altered mental status. TECHNIQUE: Axial imaging was obtained through the brain without contrast. Coronal and sagittal reform atted images were obtained, reviewed, and stored. Images were reviewed in brain and bone windows. Al l CT scans at this medical facility are performed using dose modulation techniques as appropriate to a performed exam including the following: Automated exposure control was utilized; adjustment of the MA and/or KV according to patient size; and use of iterative reconstruction technique. CTDIvol = 10.9 1, 57.18, 0.07, 0.07 mGy DLP = 1834.35. mGy-cm COMPARISON: CT HEAD WITHOUT CONTRAST on DOS: 05/08/24 FINDINGS: There is no acute intracranial hemorrhage. No mass effect or midline shift. The ventricles and sulci are within normal limits in size for age. Basal cisterns are patent. The calvarium is unre markable. Mild mucosal thickening of the paranasal sinuses. Small retention cyst versus polyp in the right maxillary sinus. Mastoid air cells are clear. IMPRESSION: No CT evidence of acute intracranial abnormality.
--- NOTE | 2025-06-15 13:23 | DVH ---
CLINICAL INFORMATION: Colitis. TECHNIQUE: Axial CT images of the abdomen and pelvis were obtained without IV contrast. Coronal and s agittal reformatted images were obtained, reviewed, and stored. Evaluation of the parenchymal organs is limited without IV contrast. Evaluation of the bowel and mesentery is limited without oral contras t. All CT scans at this medical facility are performed using dose modulation techniques as appropriat e to a performed exam including the following: Automated exposure control was utilized; adjustment of the MA and/or KV according to patient size; and use of iterative reconstruction technique. CTDIvol = none available at the time of dictation. mGy DLP = not available at the time of dictation . COMPARISON: None FINDINGS: Motion artifact limits evaluation. Examination is also limited due to beam hardening artifa ct from the patient being scanned with arms at sides. Lung bases: There are partially visualized focal areas of consolidation in the lower lobes bilaterall y. Liver: Grossly unremarkable given the limitations of the examination. Biliary: No calcified gallstones or biliary ductal dilatation. Spleen: Unremarkable. Pancreas: Grossly unremarkable in its noncontrast enhanced appearance. Adrenal glands: Unremarkable. No mass. Kidneys: No hydronephrosis. No renal or ureteral calculi. Aorta/Vascular: No aneurysm or significant calcification. Retroperitoneum: No mass or lymphadenopathy. Bowel/mesentery: No small bowel obstruction. Appendix is visualized and appears grossly unremarkable without visualized evidence for acute appendicitis. Moderate stool in the colon. Pelvic organs: Grossly unremarkable. Bladder: Mercedes catheter in the bladder. Moderate circumferential thickening of the bladder wall. Abdominal wall: No mass or hernia. Bones: No acute fracture or suspicious intraosseous lesion. IMPRESSION: 1. Limited examination due to motion artifact and beam hardening artifact as well as lack of intraven ous or oral contrast. 2. Moderate circumferential thickening of the bladder wall with mercedes catheter in place. Correlate cl inically to exclude cystitis. 3. No small bowel obstruction. 4. No CT evidence for acute appendicitis given the limitations of the examination. 5. Focal areas of consolidation in the lower lobes bilaterally, may be seen with pneumonia or aspirat ion in the appropriate clinical setting.
[2025-06-15] MEDS ORDERED: DOCUSATE SOD 100 MG CAP PO PRN (14:00)
[2025-06-15] MEDS ORDERED: ONDANSETRON HCL 4 MG/2 ML VIAL IV PRN (14:00)
[2025-06-15] MEDS ORDERED: NITROGLYCERIN 0.4 MG SL TAB SL PRN (14:00)
[2025-06-15] MEDS ORDERED: LORazepam 2MG/ML-1ML VIAL IV PRN (14:00)
[2025-06-15] MEDS ORDERED: ACETAMINOPHEN 325 MG TAB PO PRN (14:00)
[2025-06-15] MEDS ORDERED: MORPHINE SULFATE INJ 2 MG/ml SYRG IV PRN (14:00)
--- NOTE | 2025-06-15 14:09 | DVHHP2 ---
History of Present Illness Reason for Visit: Seizure History of Present Illness Benjamin Bergeron is a 39-year-old male with past medical history of seizure in April 2024, who was brought to the hospital via EMS for ALOC. Patient was found by his mother in his room with his clothes off, not responding, EMS was called. Patient was not responding when EMS arrived. When he arrived to the ER Narcan was given with no response. As patient woke up he was combative with staff, pulled out his IV, and was taking off his heart monitor. Patient was restrained. On assessment patient is alert and oriented x 1, mother is at the bedside. He is able to answer some questions appropriately, but not others, and continues to have angry outburst, and periods of confusion. He can not remember any events from today. Mother states he was on Keppra, but weaned himself off in November due to side effects. He is following with Dr. Devonte Steele. Plan was to start on Vimpat, but he never did. He has not been taking any medication since November 2024. No obvious signs of infection, will order blood, urine, and sputum cultures. REED POLISHER: Seizure Past Surgical History: None Smoke: No ALCOHOL: none Drugs: Marijuana Lives: with Family Domestic Violence: Neg Review of Systems Constitutional: No: Fever, Chills, Sweats, Weakness, Malaise, Other Eyes: No: Pain, Vision change, Conjunctivae inflammation, Eyelid inflammation, Other, Redness ENT: No: Ear pain, Ear discharge, Nose pain, Nose discharge, Nose congestion, Mouth pain, Mouth swelling, Throat pain, Throat swelling, Other Respiratory: No: Cough, Dry, Shortness of breath, SOB with excertion, Wheezing, Hemoptysis, Pleuritic Pain, Sputum, Wheezing, Other Cardiovascular: No: Chest Pain, Palpitations, Orthopnea, Paroxysmal Noc. Dyspnea, Edema, Lt Headedness, Other Gastrointestinal: No: Nausea, Vomiting, Abdominal Pain, Diarrhea, Constipation, Melena, Hematochezia, Other Genitourinary: No Dysuria, No Frequency, No Incontinence, No Hematuria, No Retention, No Other Musculoskeletal: No: other, neck pain, shoulder pain, arm pain, back pain, hand pain, leg pain, foot pain Skin: No: Rash, Lesions, Jaundice, Bruising, Other Neurological: Confusion, Seizures; No: Weakness, Numbness, Incoordination, Change in speech, Other Allergies: Coded Allergies: Heparin (Verified Adverse Reaction, Intermediate, 05/13/24) Medications Current Medications Medications Dose Ordered Sig/Richard Route Start Time Stop Time Status Last Admin Dose Admin Acetaminophen/ Hydrocodone Bitart 1 tab Q4HP PRN PO 06/15/25 14:00 UNV Ondansetron HCl 4 mg Q4HP PRN IV 06/15/25 14:00 UNV Docusate Sodium 100 mg BIDPRN PRN PO 06/15/25 14:00 UNV Acetaminophen 650 mg Q6HP PRN PO 06/15/25 14:00 UNV Nitroglycerin 0.4 mg Q5MINP PRN SL 06/15/25 14:00 UNV Morphine Sulfate 2 mg Q30M PRN IV 06/15/25 14:00 UNV Lorazepam 1 mg Q2HP PRN IV 06/15/25 14:00 UNV Metronidazole 100 ml @ 100 mls/hr Q8HR IV 06/15/25 14:00 UNV Ceftriaxone Sodium 50 ml @ 100 mls/hr DAILY@09 IV 06/16/25 09:00 UNV Exam Vital Signs Vital Signs Date Time Temp Pulse Resp B/P (MAP) Pulse Ox O2 Delivery O2 Flow Rate FiO2 06/15/25 13:06 107 16 116/65 (82) 99 06/15/25 10:00 98.4 98.4 06/15/25 10:00 Nasal Cannula* 4 36 General Appearance: Alert, moderate distress, Other (Oriented x 1, not following comands at times, combative at times) HEENT: Atraumatic, PERRLA, Other (Mucous Memb dry) Respiratory: Clear to auscultation Cardiovascular: Normal S1, Normal S2, Other (ST) Abdominal: Normal bowel sounds, Soft, No tenderness, No masses Extremities: No clubbing, No cyanosis, No edema, Normal pulses, No tenderness/swelling Skin: No rashes, No breakdown, No significant lesion Neuro: Normal gait, Normal speech, Strength at 5/5 X4 ext Psych/Mental Status: Other (ALOC) Labs/Xrays Labs Test 06/15/25 13:00 06/15/25 11:00 06/15/25 10:02 7/22/25 10:00 Range/Units Lactic Acid Level 2.1 *H 0.4-2.0 mmol/L Urine Opiates Screen Neg NEGATIVE Urine Fentanyl Screen Neg NEGATIVE Urine Barbiturates Screen Neg NEGATIVE Urine Phencyclidine Screen Neg NEGATIVE Urine Amphetamines Screen Neg NEGATIVE Urine Benzodiazepines Screen Pos NEGATIVE Urine Cocaine Screen Neg NEGATIVE Urine Cannabinoids Screen Pos NEGATIVE White Blood Count 32.4 *H 4.4-10.8 10^3/uL Red Blood Count 4.84 4.5-5.90 10^6/uL Hemoglobin 14.9 13.5-17.5 g/dL Hematocrit 44.4 41.0-53.0 % Mean Corpuscular Volume 91.7 80.0-100.0 fL Mean Corpuscular Hemoglobin 30.8 28.0-32.0 pg Mean Corpuscular Hemoglobin Concent 33.6 32.0-36.0 g/dL Red Cell Distribution Width 13.8 11.8-14.3 % Platelet Count 198 140-450 10^3/uL Mean Platelet Volume 9.9 6.9-10.8 fL Neutrophils (%) (Auto) 37.0-80.0 % Lymphocytes (%) (Auto) 10.0-50.0 % Monocytes (%) (Auto) 0.0-12.0 % Basophils (%) (Auto) 0.0-2.0 % Neutrophils # (Auto) 1.6-8.6 10 ^3/uL Lymphocytes # (Auto) 0.4-5.4 10 ^3/uL Monocytes # (Auto) 0-1.3 10 ^3/uL Differential Total Cells Counted 100.0 100 Neutrophils % (Manual) 90 H 37.0-80.0 Band Neutrophils % (Manual) 0 Lymphocytes % (Manual) 1 L 10.0-50.0 Monocytes % (Manual) 9 0-12 Eosinophils % (Manual) 0 0-7 Basophils % (Manual) 0 0.0-2.0 Metamyelocytes % (manual) 0 Myelocytes % (Manual) 0 Promyelocytes % (Manual) 0 Blast Cells % (Manual) 0 Reactive Lymphocytes 0 Platelet Estimate Adequate Sodium Level 144 136-145 mmol/L Potassium Level 4.4 3.5-5.1 mmol/L Chloride Level 107 98-107 mmol/L Carbon Dioxide Level 22 20-31 mmol/L Anion Gap 15 5-15 Blood Urea Nitrogen 9 9-23 mg/dL Creatinine 1.20 0.700-1.30 mg/dL Glomerular Filtration Rate Calc 79 >90 mL/min BUN/Creatinine Ratio 7.5 L 10.0-20.0 Serum Glucose 102 74-106 mg/dL Calcium Level 10.0 8.7-10.4 mg/dL Plasma/Serum Blood Alcohol < 3.0 <10 mg/dL Urine Color Colorless Yellow Urine Clarity Clear Clear Urine pH 5.0 5.0-9.0 Urine Specific [place] 1.014 1.001-1.035 Urine Protein Trace H Negative Urine Ketones 1+ H Negative Urine Blood 2+ H Negative /uL Urine Nitrite Negative Negative Urine Bilirubin Negative Negative Urine Urobilinogen Normal Negative mg/dL Urine Leukocyte Esterase Negative Negative /uL Urine RBC 1 0 - 3 /hpf Urine Microscopic WBC 1 0-3 /HPF Urine Squamous Epithelial Cells None seen <5 /hpf Urine Bacteria None seen None Seen /hpf Urine Glucose Normal Normal mg/dL TECHNIQUE: Axial imaging was obtained through the brain without contrast. FINDINGS: There is no acute intracranial hemorrhage. No mass effect or midline shift. The ventricles and sulci are within normal limits in size for age. Basal cisterns are patent. The calvarium is unremarkable. Mild mucosal thickening of the paranasal sinuses. Small retention cyst versus polyp in the right maxillary sinus. Mastoid air cells are clear. IMPRESSION: No CT evidence of acute intracranial abnormality. TECHNIQUE: Axial CT images of the abdomen and pelvis were obtained without IV contrast. COMPARISON: None FINDINGS: Motion artifact limits evaluation. Examination is also limited due to beam hardening artifact from the patient being scanned with arms at sides. Lung bases: There are partially visualized focal areas of consolidation in the lower lobes bilaterally. Liver: Grossly unremarkable given the limitations of the examination. Biliary: No calcified gallstones or biliary ductal dilatation. Spleen: Unremarkable. Pancreas: Grossly unremarkable in its noncontrast enhanced appearance. Adrenal glands: Unremarkable. No mass. Kidneys: No hydronephrosis. No renal or ureteral calculi. Aorta/Vascular: No aneurysm or significant calcification. Retroperitoneum: No mass or lymphadenopathy. Bowel/mesentery: No small bowel obstruction. Appendix is visualized and appears grossly unremarkable without visualized evidence for acute appendicitis. Moderate stool in the colon. Pelvic organs: Grossly unremarkable. Bladder: Mercedes catheter in the bladder. Moderate circumferential thickening of the bladder wall. Abdominal wall: No mass or hernia. Bones: No acute fracture or suspicious intraosseous lesion. IMPRESSION: 1. Limited examination due to motion artifact and beam hardening artifact as well as lack of intravenous or oral contrast. 2. Moderate circumferential thickening of the bladder wall with mercedes catheter in place. Correlate clinically to exclude cystitis. 3. No small bowel obstruction. 4. No CT evidence for acute appendicitis given the limitations of the examination. 5. Focal areas of consolidation in the lower lobes bilaterally, may be seen with pneumonia or aspiration in the appropriate clinical setting. EXAM: CHEST X-RAY 1 VIEW FINDINGS: Lines and Tubes: None Lungs: Mild interstitial opacities. Pleura: No effusion. No pneumothorax. Cardiomediastinal contours: Unremarkable Bones: No acute osseous abnormality. IMPRESSION: Mild interstitial opacities suggestive of pulmonary edema or atypical infection. SEPSIS Sepsis Screen Date sepsis recognized/suspect: Jun 15, 2025 Time Sepsis recognized/suspect: 935 Recent Procedure: No On Antibiotic Therapy: No Respiratory Rate >20: No Heart Rate >90: Yes Temp<36 C (96.8 F) or >38.3 C: No SBP <90 or MAP <65 mmHG: No (UNABLE TO OBTAIN BLOOD PRESSURE ) New Acute Mental Status Change: Yes Is the patient on CPAP, BIPAP,: No Physician Orders Head Without Contrast (06/15/25 09:48) Track Laying Supervisor (06/15/25 09:48) Ct Ab Pel Wo Con-No Oral Or Iv (06/15/25 10:39) Blood Culture (06/15/25 10:39) Sodium Chloride 0.9% (06/15/25 10:45) Chest Xray 1 View (06/15/25 11:56) Behavioral Restraints (06/15/25 10:34) Admit (06/15/25 13:46) Code Status (06/15/25 13:46) Hydrocodone-Acet 5/325mg Tab ([place] 5/32 (06/15/25 14:00) Ondansetron Hcl (Zofran) (06/15/25 14:00) Docusate Sodium Capsule (Colace Capsule) (06/15/25 14:00) Complete Blood Count (06/16/25 04:00) Comprehensive Metabolic Panel (06/16/25 04:00) Condition: Serious (06/15/25 13:46) Acetaminophen Tablet (Tylenol Tablet) (06/15/25 14:00) Nitroglycerin Sublingual (Ntrostat Subli (06/15/25 14:00) Morphine Sulfate Injection (06/15/25 14:00) Stat Ekg For Chest Pain (06/15/25 13:46) Notify Of Changes From Base (06/15/25 13:46) Maintenance Craftsman For 24 Hours (06/15/25 13:46) Emergency Dysrhythmia Protocol (06/15/25 13:46) Rhythm Strips Once Every Shift (06/15/25 13:46) Oxygen By Nasal Cannula (06/15/25 13:46) * Neurology Consult (06/15/25 13:46) Lorazepam 2mg/Ml Inj (Ativan Inj) (06/15/25 14:00) Metronidazole 500mg/100ml (Flagyl 500mg/ (06/15/25 14:00) Ceftriaxone 1gm/50ml D5w (Rocephin) (06/16/25 09:00) Regular Diet (06/15/25 Dinner) Vital Signs Date Time Temp Pulse Resp B/P (MAP) Pulse Ox O2 Delivery O2 Flow Rate FiO2 06/15/25 13:06 107 16 116/65 (82) 99 06/15/25 10:00 98.4 103 18 103/63 (76) 100 98.4 06/15/25 10:00 103 18 100 Nasal Cannula* 4 36 06/15/25 09:38 98.8 135 15 96 98.8 Laboratory Tests Test 06/15/25 10:02 06/15/25 11:15 06/15/25 13:00 White Blood Count 32.4 10^3/uL (4.4-10.8) *H Lactic Acid Level 3.0 mmol/L (0.4-2.0) *H 2.1 mmol/L (0.4-2.0) *H Medications Medications Dose Ordered Sig/Richard Route Start Time Stop Time Status Last Admin Dose Admin Ceftriaxone Sodium 50 ml @ 100 mls/hr ONCE ONCE IV 06/15/25 10:45 06/15/25 11:14 DC 06/15/25 11:19 100 MLS/HR Diphenhydramine HCl 50 mg ONCE ONCE IV 06/15/25 12:00 06/15/25 12:01 DC 06/15/25 12:00 50 MG Haloperidol Lactate 10 mg ONCE ONCE IM 06/15/25 11:15 06/15/25 11:16 DC 06/15/25 11:15 10 MG Lorazepam 1 mg ONCE ONCE IV 06/15/25 11:00 06/15/25 11:01 DC 06/15/25 10:52 1 MG Metronidazole 100 ml @ 100 mls/hr ONCE ONCE IV 06/15/25 10:45 06/15/25 11:44 DC 06/15/25 11:45 100 MLS/HR Naloxone HCl 2 mg ONCE ONCE IV 06/15/25 10:00 06/15/25 10:01 DC 06/15/25 09:54 2 MG Sodium Chloride 1,000 ml @ 150 mls/hr Q6H40M ONCE IV 06/15/25 10:45 06/15/25 17:24 06/15/25 11:45 150 MLS/HR Sodium Chloride 2,350 ml @ 2,350 mls/hr ONCE ONCE IV 06/15/25 10:45 06/15/25 11:44 DC 06/15/25 10:51 2,350 MLS/HR Assessment/Plan Assessment/Plan Assessment: Metabolic encephalopathy, Seizures, Possible aspiration pneumonia, Possible sepsis, Plan: Admit to Tele, Neurology consult, PRN Ativan for seizures, IV antibiotics, IV hydration, Blood cultures, Urine cultures, Sputum culture, Seizure precautions, Plan discussed with: Patient, Other (Mother) My Orders Orders - MARION IBRAHIM MATERIAL HANDLER FLOORPERSON Procedure Category Date Status Time Admit ADMIT 06/15/25 Transmitted 13:46 Code Status CODE 06/15/25 Transmitted 13:46 Hydrocodone-Acet PHA 06/15/25 Logged 5/325mg Tab ([place] 14:00 Ondansetron Hcl PHA 06/15/25 Logged (Zofran) 14:00 Docusate Sodium PHA 06/15/25 Logged Capsule (Colace 14:00 Complete Blood Count LAB 06/16/25 Verified 04:00 Comprehensive LAB 06/16/25 Verified Metabolic Panel 04:00 Condition: Serious ARAM 06/15/25 In Process 13:46 Acetaminophen Tablet PHA 06/15/25 Logged (Tylenol Tablet) 14:00 Nitroglycerin PHA 06/15/25 Logged Sublingual (Ntrostat 14:00 Morphine Sulfate PHA 06/15/25 Logged Injection 14:00 Stat Ekg For Chest [facility] 06/15/25 In Process Pain 13:46 Notify Md Of Changes [facility] 06/15/25 In Process From Base 13:46 Maintenance Craftsman For [facility] 06/15/25 In Process 24 Hours 13:46 Emergency Dysrhythmia [facility] 06/15/25 In Process Protocol 13:46 Rhythm Strips Once [facility] 06/15/25 In Process Every Shift 13:46 Oxygen By Nasal RT 06/15/25 Transmitted Cannula 13:46 * Neurology Consult CONS 06/15/25 Transmitted 13:46 Lorazepam 2mg/Ml Inj PHA 06/15/25 Logged (Ativan Inj) 14:00 Metronidazole PHA 06/15/25 Logged 500mg/100ml (Flagyl 14:00 Ceftriaxone 1gm/50ml PHA 06/16/25 Logged D5w (Rocephin) 09:00 Regular Diet DIET 06/15/25 Transmitted Dinner Date of Service: Jun 15, 2025 Billing Provider: MARION IBRAHIM Common Visit Codes: [id number] INP/OBS CARE (MOD) MARION IBRAHIM Jun 15, 2025 14:09
[2025-06-15] MEDS: HYDROcodone-ACET 5/325MG TAB PO PRN (15:15)
[2025-06-15] MEDS: ALPRAZolam 0.5 MG TAB PO PRN (15:46)
--- NOTE | 2025-06-15 20:45 | DVHINCON2 ---
Date of service: Jun 15, 2025 Referring Physician Akila Reason for Consultation Metabolic encephalopathy, seizure History of Present Illness Mr. Bergeron is a 39 years old right-handed gentleman with a history of chronic low back pain, the patient was admitted to the [facility] on for altered mental status, and he has been intubated. At this time, he is oriented x3,the history is obtained from him and his mother I saw him on 05/08/2024 for seizure, I will saw him in my office briefly He remembers getting up in the middle of night for nausea, vomiting, but the next memory was waking up in the emergency room. His mother relates the family found him on the floor in the living room rolling like a piece or log, with foam saliva in the mouth, and urinary incontinence. This is his previous seizure activity Earlier morning on 05/08/2024, he woke up confused, and he did not remember what had happened to him, his earphone was found on the driveway Around 2:00 p.m. on 05/08/2024, his sister found him inside his house on the floor nonresponsive to chest rubbing, and with agonal respiration, followed by apnea, and she started CPR right away, with improvement in his skin color, he then had a generalized tonic clonic activity for about 45 seconds with urinary incontinence Since 2013 or earlier, he had spells of dj vu, chest pain, cold sweating. He has no history of traumatic brain injury, intracranial infection Previously, he was Keppra, which caused mood swing, suicidal issues, SVT, later he sees Dr. Yasmany Steele, and Vimpat was recommended however the patient refused to take, but he agreed to take in the hospital He had his mother relate he had no seizure after 04/2024 Urinalysis, 06/15/25: WBC: 1, urine leukocyte esterase: Negative UDS, 06/15/2025: Benzo, cannabinoids Plasma alcohol, 06/15/2025: <3 WBC/HB/PLT/MCV, 06/15/2025: 32.4/14.9/198/91.7 BMP 06/15/2025: Unremarkable Lactic acid, 06/15/2025: 3, 2.1 CT head, 05/08/24: No CT evidence of acute intracranial abnormality CT head, 06/15/2025: No CT evidence of acute intracranial abnormality MRI head, 05/13/2024: No evidence of acute intracranial abnormality. No abnormality identified to explain the patient's seizure like activity Past Medical History Chronic low back pain Past Surgical History Circumcision Family History: FH: lupus Family History Hypertension, diabetes, lung cancer, lupus, Filiberto disease Social History He is not tobacco smoker, he smokes marijuana, no history of alcohol or recreational substance Allergies: Coded Allergies: Heparin (Verified Adverse Reaction, Intermediate, 05/13/24) Home Meds Active Scripts Cefdinir (Cefdinir) 300 Mg Cap, 1 CAP PO BID for 7 Days, #14 CAP Prov:ANGEL NAZARIO [employer]IN[employer] AND DRAWINGS CURATOR 05/13/24 Levetiracetam (KEPPRA TABLET) 500 Mg Tb, 500 MG PO BID for 60 Days, #120 TAB Prov:ANGEL NAZARIO [employer]INTS AND DRAWINGS CURATOR 05/13/24 Current Medications Current Medications Medications (Trade) Dose Ordered Sig/Richard Route PRN Reason Start Time Stop Time Status Last Admin Acetaminophen/ Hydrocodone Bitart ([place] 5/325MG Tab) 1 tab Q4HP PRN PO MODERATE PAIN (4-6 PAIN SCALE) 06/15/25 14:00 06/15/25 19:25 Ondansetron HCl (Zofran) 4 mg Q4HP PRN IV NAUSEA / VOMITING 06/15/25 14:00 Docusate Sodium (Colace Capsule) 100 mg BIDPRN PRN PO FOR CONSTIPATION 06/15/25 14:00 Acetaminophen (Tylenol Tablet) 650 mg Q6HP PRN PO PAIN SCALE 1-3 OR TEMP>100.4 06/15/25 14:00 Nitroglycerin (Ntrostat Sublingual) 0.4 mg Q5MINP PRN SL FOR CHEST PAIN 06/15/25 14:00 Morphine Sulfate 2 mg Q30M PRN IV FOR CHEST PAIN 06/15/25 14:00 Lorazepam (Ativan Inj) 1 mg Q2HP PRN IV SEIZURES 06/15/25 14:00 Metronidazole 100 ml @ 100 mls/hr Q8HR IV 06/15/25 14:00 06/15/25 14:29 Ceftriaxone Sodium 50 ml @ 100 mls/hr DAILY@09 IV 06/16/25 09:00 Alprazolam (Xanax Tablet) 0.5 mg Q8HPRN PRN PO ANXIETY 06/15/25 15:30 06/15/25 15:46 Review of Systems As above, the other systems are negative Vital Signs Vital Signs Date Time Temp Pulse Resp B/P (MAP) Pulse Ox O2 Delivery O2 Flow Rate FiO2 06/15/25 20:33 89 18 98/61 (73) 95 06/15/25 10:00 98.4 98.4 06/15/25 10:00 Nasal Cannula* 4 36 Physical Exam GENERAL EXAM: General: the patient is well developed and nourished. No acute distress. HEENT: Normocephalic, neck is supple, no carotid bruits. No mass. RESPIRATORY: Normal respiratory effort with symmetrical lung expansion. Lungs clear to auscultation. CARDIOVASCULAR: Regular rate and rhythm with no murmurs. S1, S2. ABDOMEN: Soft, nontender, normal bowel sound NEUROLOGICAL: MENTAL STATUS: Awake and alert. Oriented to person, place, time and general circumstances. Able to give personal history SPEECH, LANGUAGE, HIGHER CORTICAL FUNCTION: no aphasia or dysathria. CRANIAL NERVES: #2: Intact visual perez to confrontation. The optic discs were sharp. #3,4,6: Pupils are equal, round and reactive. EOMs full and conjugate. #5: Facial sensation intact in all three divisions bilaterally. Mandibular strength intact. #7: Facial muscles symmetrical and strength intact. #8: Hearing grossly normal to voice. #9,10: Uvula and soft palate rise in the midline. Swallow and voice are normal. #11: Trapezius and sternomastoid strength intact bilaterally. #12: Tongue midline. No fasciculations or atrophy. SENSATION: Sensation to touch and pinprick is normal. MOTOR: Normal tone in the upper and lower extremity. Normal muscle bulk. No fasciculations. No abnormal movements or posturing. Muscle strength of the major groups in the upper extremities is 5/5. Muscle strength of the major groups in the lower extremities is 5/5. REFLEXES: Deep tendon reflexes normal and symmetrical. No pathological reflexes. CEREBELLAR/COORDINATION: Finger to nose is normal bilaterally. GAIT/STATION: deferred. Labs/Diagnostic Data Labs Test 06/15/25 13:00 06/15/25 11:00 06/15/25 10:02 06/15/25 10:00 Range/Units Lactic Acid Level 2.1 *H 0.4-2.0 mmol/L Urine Opiates Screen Neg NEGATIVE Urine Fentanyl Screen Neg NEGATIVE Urine Barbiturates Screen Neg NEGATIVE Urine Phencyclidine Screen Neg NEGATIVE Urine Amphetamines Screen Neg NEGATIVE Urine Benzodiazepines Screen Pos NEGATIVE Urine Cocaine Screen Neg NEGATIVE Urine Cannabinoids Screen Pos NEGATIVE White Blood Count 32.4 *H 4.4-10.8 10^3/uL Red Blood Count 4.84 4.5-5.90 10^6/uL Hemoglobin 14.9 13.5-17.5 g/dL Hematocrit 44.4 41.0-53.0 % Mean Corpuscular Volume 91.7 80.0-100.0 fL Mean Corpuscular Hemoglobin 30.8 28.0-32.0 pg Mean Corpuscular Hemoglobin Concent 33.6 32.0-36.0 g/dL Red Cell Distribution Width 13.8 11.8-14.3 % Platelet Count 198 140-450 10^3/uL Mean Platelet Volume 9.9 6.9-10.8 fL Neutrophils (%) (Auto) 37.0-80.0 % Lymphocytes (%) (Auto) 10.0-50.0 % Monocytes (%) (Auto) 0.0-12.0 % Basophils (%) (Auto) 0.0-2.0 % Neutrophils # (Auto) 1.6-8.6 10 ^3/uL Lymphocytes # (Auto) 0.4-5.4 10 ^3/uL Monocytes # (Auto) 0-1.3 10 ^3/uL Differential Total Cells Counted 100.0 100 Neutrophils % (Manual) 90 H 37.0-80.0 Band Neutrophils % (Manual) 0 Lymphocytes % (Manual) 1 L 10.0-50.0 Monocytes % (Manual) 9 0-12 Eosinophils % (Manual) 0 0-7 Basophils % (Manual) 0 0.0-2.0 Metamyelocytes % (manual) 0 Myelocytes % (Manual) 0 Promyelocytes % (Manual) 0 Blast Cells % (Manual) 0 Reactive Lymphocytes 0 Platelet Estimate Adequate Sodium Level 144 136-145 mmol/L Potassium Level 4.4 3.5-5.1 mmol/L Chloride Level 107 98-107 mmol/L Carbon Dioxide Level 22 20-31 mmol/L Anion Gap 15 5-15 Blood Urea Nitrogen 9 9-23 mg/dL Creatinine 1.20 0.700-1.30 mg/dL Glomerular Filtration Rate Calc 79 >90 mL/min BUN/Creatinine Ratio 7.5 L 10.0-20.0 Serum Glucose 102 74-106 mg/dL Calcium Level 10.0 8.7-10.4 mg/dL Plasma/Serum Blood Alcohol < 3.0 <10 mg/dL Urine Color Colorless Yellow Urine Clarity Clear Clear Urine pH 5.0 5.0-9.0 Urine Specific [place] 1.014 1.001-1.035 Urine Protein Trace H Negative Urine Ketones 1+ H Negative Urine Blood 2+ H Negative /uL Urine Nitrite Negative Negative Urine Bilirubin Negative Negative Urine Urobilinogen Normal Negative mg/dL Urine Leukocyte Esterase Negative Negative /uL Urine RBC 1 0 - 3 /hpf Urine Microscopic WBC 1 0-3 /HPF Urine Squamous Epithelial Cells None seen <5 /hpf Urine Bacteria None seen None Seen /hpf Urine Glucose Normal Normal mg/dL Assessment ALOC/Coma Status epileptics Generalized tonic-clonic seizure The one witnessed on 06/15/25 was with a typical feature Partial simple seizure Leukocytosis Lactic acidosis, secondary seizure activity, rule out sepsis Plan/Recommendation Monitoring Supportive treatment EEG A trial of Vimpat 50 mg b.i.d. and accelerating Ativan for seizure breakthrough IV antibiotics Driving issues discussed Follow up with his doctors on discharge More recommendation per clinical course This medical document was created using an electronic medical record system with [employer] dictation system. Although this document has been carefully reviewed, there may still be some phonetic and typographical errors. These areas are purely typographical due to imperfections of the software programs, and do not reflect any compromise in the patient's medical care. Plan discussed with: Patient, Other ELENA PRYOR MD Jun 15, 2025 20:45
[2025-06-15 23:03] VITALS: PULSE 85; RESP 18; O2SAT 92
[2025-06-16] VITALS (7 sets, daily range): BP systolic 26–126; BP diastolic 64–89; PULSE 82–97; RESP 16–18; TEMP 97.5–98.3; O2SAT 94–98
[2025-06-16 06:39] LABS: Hematocrit 40.4 % (41.0-53.0); Hemoglobin 14.1 g/dL (13.5-17.5); Mean Corpuscular Hemoglobin 31.3 pg (28.0-32.0); Mean Corpuscular Volume 89.9 fL (80.0-100.0); Nucleated Red Blood Cells % 0.0 %
[2025-06-16 07:03] LABS: Albumin 3.9 g/dL (3.2-4.8); Anion Gap 12 (5-15); BUN/Creatinine Ratio 12.4 (10.0-20.0); Blood Urea Nitrogen 14 mg/dL (9-23); Calcium 9.4 mg/dL (8.7-10.4); Carbon Dioxide 21 mmol/L (20-31); Chloride 106 mmol/L (98-107); Glucose 85 mg/dL (74-106); Potassium 3.6 mmol/L (3.5-5.1); Sodium 139 mmol/L (136-145); Total Protein 6.1 g/dL (5.7-8.2)
[2025-06-16 07:10] LABS: Alanine Aminotransferase 65 U/L (7-40); Alkaline Phosphatase 39 U/L (46-116); Bilirubin, Total 1.8 mg/dL (0.2-1.0)
[2025-06-16] MEDS: cefTRIAXone 1GM/50ML D5W 50 ML IV SCH (08:55)
[2025-06-16] MEDS ORDERED: PIPERACILLIN-TAZOB 3.375GM 100 ML IV ONE (10:00)
--- NOTE | 2025-06-16 10:20 | DVHPNRES ---
Progress Note Date Seen: Jun 16, 2025 Resident Creating Document: CAROLYN SENA RESIDENT Medical Necessity Reason Pt with a Central, PICC or Fol: No Subjective Review of Systems 39-year-old male comes to the ED with a history of hematemesis and an episode of witnessed seizure by the mother. Reports the patient had a seizure with involuntary head and limbs movement, bladder incontinence. One abrasion omega was present above upper lip and right-sided forehead followed by the seizure. The mother reports the patient had a similar episode 1 year ago, he had to be admitted in the hospital for 3 days to stabilize. He was prescribed levetiracetam or Keppra. Patient discontinued the medications on his own, because of some side effects like anxiety, depression and mood changes. The patient tapered himself off of the medication without any physician consultation. The patient reports having an episode of blood mixed vomiting, no further vomiting since yesterday. The patient reports having productive cough for 2 days. Patient denies any chest pain, shortness of breath, fever or any other complaints. Past medical history: Seizure Smoking: None Alcohol: His last alcohol intake was 1 and half year ago. He used to drink occasionally. Drugs: Active marijuana use Lives with family Review of systems: The patient was seen and examined at the bedside. Overnight events were reviewed. Review of system as above. No new Complaints reported. Rest of the ROS is negative. Objective vital signs Vital Sign Date Time Temp Pulse Resp B/P (MAP) Pulse Ox O2 Delivery O2 Flow Rate FiO2 06/16/25 09:00 97.6 82 16 111/67 (82) 94 97.6 06/15/25 23:03 Nasal Cannula* 4 36 Total Intake and Output 06/15/25 06/15/25 06/16/25 15:00 23:00 07:00 Intake Total 3430 ml 650 ml 1300 ml Output Total 1200 ml 900 ml Balance 2230 ml 650 ml 400 ml medications Current Medications Medications Dose Ordered Sig/Richard Route Start Time Stop Time Status Last Admin Dose Admin Acetaminophen/ Hydrocodone Bitart 1 tab Q4HP PRN PO 06/15/25 14:00 06/15/25 19:25 1 TAB Ondansetron HCl 4 mg Q4HP PRN IV 06/15/25 14:00 Docusate Sodium 100 mg BIDPRN PRN PO 06/15/25 14:00 Acetaminophen 650 mg Q6HP PRN PO 06/15/25 14:00 Nitroglycerin 0.4 mg Q5MINP PRN SL 06/15/25 14:00 Morphine Sulfate 2 mg Q30M PRN IV 06/15/25 14:00 Lorazepam 1 mg Q2HP PRN IV 06/15/25 14:00 Alprazolam 0.5 mg Q8HPRN PRN PO 06/15/25 15:30 06/15/25 15:46 0.5 MG Lacosamide 50 mg BID PO 06/16/25 10:00 UNV Piperacillin Sod/ Tazobactam Sod 100 ml @ 25 mls/hr Q8HR IV 06/16/25 22:00 Doxycycline Hyclate 100 ml @ 50 mls/hr Q12H IV 06/16/25 09:30 Examination Pt is lying on bed General Appearance: Right-sided forehead and upper lip abrasion, Alert, Oriented X3, Cooperative, Mild distress HEENT: Atraumatic, Mucous membranes moist/pink Respiratory: Clear to auscultation, Normal air movement, No added sounds Cardiovascular: Regular rate, Normal S1, Normal S2, No murmurs Abdominal/ : Active bowel sounds, Soft, no distention, no tenderness Extremities: No edema, Normal pulses, No tenderness/swelling Skin: No Significant rash, except past surgical scars Neuro: Normal speech, sensorimotor deficits none Psych/Mental Status: Mental status NL, Mood NL Nurse was there as straddle bug operator during examination laboratory and microbiology Laboratory Tests 06/16/25 05:53 Test 06/16/25 05:53 Range/Units Serum Glucose 85 74-106 mg/dL Microbiology Date/Time Source Procedure Growth Status 06/15/25 10:00 Voided Urine Urine Culture - Preliminary Resulted Problem List/Assessment/Plan Problem List/Assessment/Plan Acuue Metabolic encephalopathy due to seizures # ? Status epileptics # Generalized tonic-clonic seizure -Head CT: Negative -lorazepam -urology on board, advised supportive treatment, EEG and trial of Vimpat 50 mg b.i.d. - Driving issues discussed # ?Sepsis due to below Pneumonia due to Gram-positive or negative organism Aspiration pneumonia? -Chest x-ray revealed mild interstitial opacities pulmonary edema or atypical infection. -CT abdomen pelvis: Diaz in place with the bladder thickening no bowel obstruction no appendicitis. Focal areas of consolidation in the lower lobes of bilateral lungs possibly pneumonia or aspiration. -Piperacillin-tazobactam and doxycycline. -pancultures ordered, pending GI prophylaxis: Not indicated DVT prophylaxis: Not indicated Diet: Regular Goals of care discussed with the patient for more than 27 minutes: Full code status Case discussed with , patient and RN Plan discussed with: Patient, Other (Mother, RN) Date of Service: Jun 16, 2025 Billing Provider: VLADIMIR ORTIZ MD Common Visit Codes: [id number] INP/OBS CARE(HIGH) CAROLYN SENA RESIDENT Jun 16, 2025 10:20 VLADIMIR ORTIZ MD Jun 16, 2025 23:40
[2025-06-16] MEDS: DOXYCYCLINE 100MG/100ML 100 ML IV SCH (11:48)
[2025-06-16 12:11] LABS: INR 1.11 (0.9-1.15); Partial Thromboplastin Time 27.3 SEC (24.5-34.5); Prothrombin Time 11.6 sec (9.3-11.8)
[2025-06-16] MEDS: PIPERACILLIN-TAZOB 3.375GM 100 ML IV ONE (13:11)
[2025-06-16] MEDS: LACOSAMIDE 50 MG TAB PO ONE (18:12)
--- NOTE | 2025-06-16 21:17 | DVHPN2 ---
Progress Note - Dictate Date Seen: Jun 16, 2025 Medical Necessity Reason Pt with a Central, PICC or Fol: No Subjective Mr. Bergeron is a 39 years old right-handed gentleman with a history of chronic low back pain, the patient was admitted to the [facility] on 06/15/2025 for altered mental status I saw him on 05/08/2024 for seizure, I will saw him in my office briefly I have seen and examined the patient, discussed with his nurse, he is alert and fully oriented, no seizure activity, no new complaints I have discussed with his pharmacist regarding his Vimpat dosing Blood culture, 06/18/2025: Urinalysis, 06/15/25: WBC: 1, urine leukocyte esterase: Negative UDS, 06/15/2025: Benzo, cannabinoids Plasma alcohol, 06/15/2025: <3 WBC/HB/PLT/MCV, 06/15/2025: 32.4/14.9/198/91.7, 06/16/2025: 94516/14.1/177/in the 0.9 BMP 06/15/2025: Unremarkable Yes/AST/ALT/AP, 05/26/2025: 1.8/271/55/39 Lactic acid, 06/15/2025: 3, 2.1 CT head, 05/08/24: No CT evidence of acute intracranial abnormality CT head, 06/15/2025: No CT evidence of acute intracranial abnormality MRI head, 05/13/2024: No evidence of acute intracranial abnormality. No abnormality identified to explain the patient's seizure like activity vital signs Vital Sign Date Time Temp Pulse Resp B/P (MAP) Pulse Ox O2 Delivery O2 Flow Rate FiO2 06/16/25 17:00 97.7 84 16 125/89 (101) 95 97.7 06/16/25 07:30 Room Air* 0 21 Total Intake and Output 06/15/25 06/15/25 06/16/25 15:00 23:00 07:00 Intake Total 3430 ml 650 ml 1300 ml Output Total 1200 ml 900 ml Balance 2230 ml 650 ml 400 ml medications Current Medications Medications Dose Ordered Sig/Richard Route Start Time Stop Time Status Last Admin Dose Admin Acetaminophen/ Hydrocodone Bitart 1 tab Q4HP PRN PO 06/15/25 14:00 06/15/25 19:25 1 TAB Ondansetron HCl 4 mg Q4HP PRN IV 06/15/25 14:00 Docusate Sodium 100 mg BIDPRN PRN PO 06/15/25 14:00 Acetaminophen 650 mg Q6HP PRN PO 06/15/25 14:00 Nitroglycerin 0.4 mg Q5MINP PRN SL 06/15/25 14:00 Morphine Sulfate 2 mg Q30M PRN IV 06/15/25 14:00 Lorazepam 1 mg Q2HP PRN IV 06/15/25 14:00 Alprazolam 0.5 mg Q8HPRN PRN PO 06/15/25 15:30 06/15/25 15:46 0.5 MG Lacosamide 50 mg BID PO 06/16/25 22:00 Piperacillin Sod/ Tazobactam Sod 100 ml @ 25 mls/hr Q8HR IV 06/16/25 22:00 Doxycycline Hyclate 100 ml @ 50 mls/hr Q12H IV 06/16/25 09:30 06/16/25 11:48 50 MLS/HR Patient Own Medication 1 BID PO 06/16/25 22:00 UNV objective General: the patient is well developed and nourished. No acute distress. MENTAL STATUS: Subjective SPEECH, LANGUAGE, HIGHER CORTICAL FUNCTION: no aphasia or dysathria. CRANIAL NERVES:Pupils are equal, round and reactive. EOMs full and conjugate. Facial sensation intact in all three divisions bilaterally. Mandibular strength intact. Facial muscles symmetrical and strength intact. SENSATION: Sensation to touch and pinprick is normal. MOTOR: Normal tone in the upper and lower extremity. Normal muscle bulk. No fasciculations. No abnormal movements or posturing. Muscle strength of the major groups in the extremities is 5/5. REFLEXES: Deep tendon reflexes normal and symmetrical. No pathological reflexes. CEREBELLAR/COORDINATION: Finger to nose is normal bilaterally. GAIT/STATION: deferred laboratory and microbiology Laboratory Tests 06/16/25 05:53 Test 06/16/25 05:53 Range/Units Serum Glucose 85 74-106 mg/dL Problem List ALOC/Coma Status epileptics Generalized tonic-clonic seizure The one witnessed on 06/15/25 was atypical to epileptic seizure Partial simple seizure Leukocytosis Lactic acidosis, secondary seizure activity, rule out sepsis Assessment/Plan Monitoring Supportive treatment EEG A trial of Vimpat 50 mg b.i.d. and accelerating Ativan for seizure breakthrough IV antibiotics Driving issues discussed Follow up with his doctors on discharge More recommendation per clinical course This medical document was created using an electronic medical record system with [employer] dictation system. Although this document has been carefully reviewed, there may still be some phonetic and typographical errors. These areas are purely typographical due to imperfections of the software programs, and do not reflect any compromise in the patient's medical care. Prognosis Poor Plan discussed with: Patient, Other Total Time (mins): 35 ELENA PRYOR MD Jun 16, 2025 21:17
[2025-06-16] MEDS ORDERED: PATIENTS OWN MEDICATION PO SCH (22:00)
[2025-06-16] MEDS: PIPERACILLIN-TAZOB 3.375GM 100 ML IV SCH (22:00)
[2025-06-16] MEDS: LACOSAMIDE 50 MG TAB PO SCH (22:00)
[2025-06-17] VITALS (8 sets, daily range): BP systolic 109–136; BP diastolic 72–91; PULSE 70–91; RESP 16–20; TEMP 97.4–98.1; O2SAT 93–98
[2025-06-17 07:06] LABS: Hematocrit 42.9 % (41.0-53.0); Hemoglobin 15.3 g/dL (13.5-17.5); Mean Corpuscular Hemoglobin 31.7 pg (28.0-32.0); Mean Corpuscular Volume 88.9 fL (80.0-100.0); Nucleated Red Blood Cells % 0.1 %
[2025-06-17 07:18] LABS: Anion Gap 8 (5-15); Carbon Dioxide 29 mmol/L (20-31); Chloride 102 mmol/L (98-107); Potassium 3.9 mmol/L (3.5-5.1); Sodium 139 mmol/L (136-145)
[2025-06-17 07:19] LABS: Calcium 9.8 mg/dL (8.7-10.4)
[2025-06-17 07:24] LABS: BUN/Creatinine Ratio 9.4 (10.0-20.0); Blood Urea Nitrogen 10 mg/dL (9-23); Glucose 96 mg/dL (74-106)
[2025-06-17 09:22] LABS: Alkaline Phosphatase 46.0 U/L (46-116); Total Protein 6.7 g/dL (5.7-8.2)
[2025-06-17 09:23] LABS: Alanine Aminotransferase 122.0 U/L (7-40); Albumin 4.4 g/dL (3.2-4.8); Bilirubin, Direct 0.7 mg/dL (<0.3); Bilirubin, Total 2.0 mg/dL (0.2-1.0)
--- NOTE | 2025-06-17 13:06 | DVH ---
ABDOMINAL ULTRASOUND CLINICAL HISTORY: transaminitis TECHNIQUE: Multiple grayscale and color Doppler ultrasound images were obtained of the abdomen. WID: COMPARISON: None FINDINGS: Liver and Biliary System: Homogeneous echotexture, normal size measuring 16 cm. No focal hepatic o bservations. No intrahepatic bile duct dilatation. The common duct measures 0.3 cm at the patricia hep atis. The gallbladder is normal caliber without wall thickening or cholelithiasis. Pancreas: Visualized portions are unremarkable. Kidneys: The right kidney is 11.4 cm . No hydronephrosis, increased echogenicity, shadowing stone, or focal lesion. IMPRESSION: Unremarkable right upper quadrant ultrasound.
--- NOTE | 2025-06-17 17:16 | DVHPNRES ---
Progress Note Date Seen: Jun 17, 2025 Resident Creating Document: CAROLYN SENA Medical Necessity Reason Pt with a Central, PICC or Fol: No Subjective Review of Systems The patient reports tolerating the new drug Vimpat well. He did not have any further seizure. The patient denies any chest pain, shortness of breath, fever or abdominal pain or any other complaints at this time. Review of systems: The patient was seen and examined at the bedside. Complaints reported. Overnight events were reviewed. Rest of the ROS is negative. Objective vital signs Vital Sign Date Time Temp Pulse Resp B/P (MAP) Pulse Ox O2 Delivery O2 Flow Rate FiO2 06/17/25 08:58 98.0 85 16 113/76 (88) 97 98.0 06/17/25 08:00 Nasal Cannula* 2 28 Total Intake and Output 06/16/25 06/16/25 06/17/25 15:00 23:00 07:00 Intake Total 800 ml 450 ml Balance 800 ml 450 ml medications Current Medications Medications Dose Ordered Sig/Richard Route Start Time Stop Time Status Last Admin Dose Admin Acetaminophen/ Hydrocodone Bitart 1 tab Q4HP PRN PO 06/15/25 14:00 06/15/25 19:25 1 TAB Ondansetron HCl 4 mg Q4HP PRN IV 06/15/25 14:00 Docusate Sodium 100 mg BIDPRN PRN PO 06/15/25 14:00 Acetaminophen 650 mg Q6HP PRN PO 06/15/25 14:00 Nitroglycerin 0.4 mg Q5MINP PRN SL 06/15/25 14:00 Morphine Sulfate 2 mg Q30M PRN IV 06/15/25 14:00 Lorazepam 1 mg Q2HP PRN IV 06/15/25 14:00 Alprazolam 0.5 mg Q8HPRN PRN PO 06/15/25 15:30 06/15/25 15:46 0.5 MG Lacosamide 50 mg BID PO 06/16/25 22:00 06/17/25 09:23 50 MG Piperacillin Sod/ Tazobactam Sod 100 ml @ 25 mls/hr Q8HR IV 06/16/25 22:00 06/17/25 14:04 25 MLS/HR Doxycycline Hyclate 100 ml @ 50 mls/hr Q12H IV 06/16/25 09:30 06/17/25 09:23 50 MLS/HR Patient Own Medication 1 BID PO 06/16/25 22:00 UNV Examination General Appearance: Right-sided forehead and upper lip abrasion, Alert, Oriented X3, Cooperative, Mild distress HEENT: Atraumatic, Mucous membranes moist/pink Respiratory: Clear to auscultation, Normal air movement, No added sounds Cardiovascular: Regular rate, Normal S1, Normal S2, No murmurs Abdominal/ : Active bowel sounds, Soft, no distention, no tenderness Extremities: No edema, Normal pulses, No tenderness/swelling Skin: No Significant rash, except past surgical scars Neuro: Normal speech, sensorimotor deficits none Psych/Mental Status: Mental status NL, Mood NL Nurse was there as supervisor body assembly during examination laboratory and microbiology Laboratory Tests 06/17/25 06:23 Test 06/17/25 06:23 Range/Units Serum Glucose 96 74-106 mg/dL Microbiology Date/Time Source Procedure Growth Status 06/15/25 11:15 Blood Blood Culture - Preliminary NO GROWTH AFTER 48 HOURS OF INCUBATION. Resulted 06/15/25 10:00 Voided Urine Urine Culture - Preliminary Resulted Labs and/or images reviewed: Labs reviewed by me, Image(s) reviewed by me Problem List/Assessment/Plan Problem List/Assessment/Plan Acuue Metabolic encephalopathy due to seizures # ? Status epileptics # Generalized tonic-clonic seizure -Head CT: Negative -lorazepam -urology on board, advised supportive treatment, EEG and trial of Vimpat 50 mg b.i.d. - Driving issues discussed # ?Sepsis due to below Pneumonia due to Gram-positive or negative organism Aspiration pneumonia? -Chest x-ray revealed mild interstitial opacities pulmonary edema or atypical infection. -CT abdomen pelvis: Diaz in place with the bladder thickening no bowel obstruction no appendicitis. Focal areas of consolidation in the lower lobes of bilateral lungs possibly pneumonia or aspiration. -Piperacillin-tazobactam and doxycycline. -pancultures ordered, pending Transaminitis AST, ALT elevated -Abdominal ultrasound: Unremarkable -lipase 35 -ammonia 11 -hepatitis panel ordered,pending results GI prophylaxis: Not indicated DVT prophylaxis: Not indicated Diet: Regular Goals of care discussed with the patient for more than 27 minutes: Full code status Case discussed with , patient and RN Plan discussed with: Patient, Other (RN) My Orders My Orders Orders - CAROLYN SENA Procedure Category Date Status Time LIVER US 06/17/25 Resulted 10:43 Acute Hepatitis Panel LAB 06/17/25 In Process 10:43 Date of Service: Jun 18, 2025 Billing Provider: VLADIMIR ORTIZ MD Common Visit Codes: [id number] INP/OBS CARE(HIGH) CAROLYN SENA Jun 17, 2025 17:16 VLADIMIR ORTIZ MD Jun 19, 2025 00:10
--- NOTE | 2025-06-17 20:16 | DVHPN2 ---
Progress Note - Dictate Date Seen: Jun 17, 2025 Medical Necessity Reason Pt with a Central, PICC or Fol: No Subjective Mr. Bergeron is a 39 years old right-handed gentleman with a history of chronic low back pain, the patient was admitted to the [facility] on 06/15/2025 for altered mental status I saw him on 05/08/2024 for seizure, I will saw him in my office briefly I have seen and examined the patient, discussed with his nurse, he is alert and fully oriented, no seizure activity, he started Vimpat today, he reports no new problems, he agreed to work with Dr. Steele gradually titrate up the dosage for seizure control Blood culture, 06/18/2025: Urinalysis, 06/15/25: WBC: 1, urine leukocyte esterase: Negative UDS, 06/15/2025: Benzo, cannabinoids Plasma alcohol, 06/15/2025: <3 WBC/HB/PLT/MCV, 06/15/2025: 32.4/14.9/198/91.7, 06/16/2025: 23073/14.1/177/in the 0.9 BMP 06/15/2025: Unremarkable TBI/AST/ALT/AP, 05/26/2025: 1.8/271/55/39 Lactic acid, 06/15/2025: 3, 2.1 Ultrasound, abdomen, 06/17/2025: Unremarkable right upper quadrant ultrasound. CT head, 05/08/24: No CT evidence of acute intracranial abnormality CT head, 06/15/2025: No CT evidence of acute intracranial abnormality MRI head, 05/13/2024: No evidence of acute intracranial abnormality. No abnormality identified to explain the patient's seizure like activity vital signs Vital Sign Date Time Temp Pulse Resp B/P (MAP) Pulse Ox O2 Delivery O2 Flow Rate FiO2 06/17/25 17:00 97.8 78 17 116/91 (99) 96 97.8 06/17/25 08:00 Nasal Cannula* 2 28 Total Intake and Output 06/16/25 06/16/25 06/17/25 15:00 23:00 07:00 Intake Total 800 ml 450 ml Balance 800 ml 450 ml medications Current Medications Medications Dose Ordered Sig/Richard Route Start Time Stop Time Status Last Admin Dose Admin Acetaminophen/ Hydrocodone Bitart 1 tab Q4HP PRN PO 06/15/25 14:00 06/15/25 19:25 1 TAB Ondansetron HCl 4 mg Q4HP PRN IV 06/15/25 14:00 Docusate Sodium 100 mg BIDPRN PRN PO 06/15/25 14:00 Acetaminophen 650 mg Q6HP PRN PO 06/15/25 14:00 Nitroglycerin 0.4 mg Q5MINP PRN SL 06/15/25 14:00 Morphine Sulfate 2 mg Q30M PRN IV 06/15/25 14:00 Lorazepam 1 mg Q2HP PRN IV 06/15/25 14:00 Alprazolam 0.5 mg Q8HPRN PRN PO 06/15/25 15:30 06/15/25 15:46 0.5 MG Lacosamide 50 mg BID PO 06/16/25 22:00 06/17/25 09:23 50 MG Doxycycline Hyclate 100 ml @ 50 mls/hr Q12H IV 06/16/25 09:30 06/17/25 09:23 50 MLS/HR Patient Own Medication 1 BID PO 06/16/25 22:00 UNV Piperacillin Sod/ Tazobactam Sod 100 ml @ 25 mls/hr Q6H IV 06/17/25 20:00 objective General: the patient is well developed and nourished. No acute distress. MENTAL STATUS: Subjective SPEECH, LANGUAGE, HIGHER CORTICAL FUNCTION: no aphasia or dysathria. CRANIAL NERVES:Pupils are equal, round and reactive. EOMs full and conjugate. Facial sensation intact in all three divisions bilaterally. Mandibular strength intact. Facial muscles symmetrical and strength intact. SENSATION: Sensation to touch and pinprick is normal. MOTOR: Normal tone in the upper and lower extremity. Normal muscle bulk. No fasciculations. No abnormal movements or posturing. Muscle strength of the major groups in the extremities is 5/5. REFLEXES: Deep tendon reflexes normal and symmetrical. No pathological reflexes. CEREBELLAR/COORDINATION: Finger to nose is normal bilaterally. GAIT/STATION: deferred laboratory and microbiology Laboratory Tests 06/17/25 06:23 Test 06/17/25 06:23 Range/Units Serum Glucose 96 74-106 mg/dL Problem List ALOC/Coma Status epileptics Generalized tonic-clonic seizure The one witnessed on 06/15/25 was atypical to epileptic seizure Partial simple seizure Leukocytosis Lactic acidosis, secondary seizure activity, rule out sepsis Assessment/Plan Monitoring Supportive treatment EEG Vimpat 50 mg b.i.d. and accelerating Ativan for seizure breakthrough IV antibiotics Driving issues discussed Follow up with his doctors on discharge More recommendation per clinical course This medical document was created using an electronic medical record system with [employer] dictation system. Although this document has been carefully reviewed, there may still be some phonetic and typographical errors. These areas are purely typographical due to imperfections of the software programs, and do not reflect any compromise in the patient's medical care. Prognosis poor Plan discussed with: Patient, Other ELENA PRYOR MD Jun 17, 2025 20:16
[2025-06-17] MEDS: PIPERACILLIN-TAZOB 3.375GM 100 ML IV SCH (21:21)
--- NOTE | 2025-06-17 23:48 | DVHEEG2 ---
Neurology EEG Procedural Note Procedural Note EXAM DATE: 06/16/2025 REFERRING DOCTOR: Dr. Pryor TECHNIQUE: Eighteen channels of EEG, 2 channels of EOG, and 1 channel of EKG were recorded using the [employer] 10/20 system. CLINICAL DATA: The patient was referred for an EEG evaluation for the evidence of seizure disorder. MEDICATIONS: See the chart BACKGROUND ACTIVITY: While the patient was awake, the background activity consisted of well regulated 9-10 Hz rhythmic waveforms, symmetrically distributed over both posterior quadrants and was reactive to eye opening. ACTIVATION: Hyperventilation: Not done Photic Stimulation: Not done Sleep: Stage I and IIo IMPRESSION: This is a normal EEG. No focal, lateralized, or epileptiform features are noted. If clinically indicated to rule out a seizure disorder, recommend repeat EEG with sleep deprivation. The EKG channel showed a regular heart rate of 78/[place] [address] ELENA PRYOR MD Jun 17, 2025 23:48
[2025-06-18] VITALS (7 sets, daily range): BP systolic 112–134; BP diastolic 79–94; PULSE 63–92; RESP 17–20; TEMP 97.8–98.4; O2SAT 96–99
[2025-06-18 07:20] LABS: Hematocrit 41.1 % (41.0-53.0); Hemoglobin 14.5 g/dL (13.5-17.5); Mean Corpuscular Hemoglobin 31.5 pg (28.0-32.0); Mean Corpuscular Volume 89.0 fL (80.0-100.0); Nucleated Red Blood Cells % 0.0 %
[2025-06-18 07:37] LABS: Albumin 4.1 g/dL (3.2-4.8); Anion Gap 9 (5-15); BUN/Creatinine Ratio 9.1 (10.0-20.0); Calcium 9.6 mg/dL (8.7-10.4); Carbon Dioxide 29 mmol/L (20-31); Chloride 102 mmol/L (98-107); Glucose 97 mg/dL (74-106); Sodium 140 mmol/L (136-145); Total Protein 6.3 g/dL (5.7-8.2)
[2025-06-18 07:39] LABS: Alanine Aminotransferase 155 U/L (7-40); Alkaline Phosphatase 35 U/L (46-116); Bilirubin, Total 1.5 mg/dL (0.2-1.0); Blood Urea Nitrogen 8 mg/dL (9-23); Potassium 3.4 mmol/L (3.5-5.1)
[2025-06-18 10:31] LABS: Hepatitis B Surface Antigen Negative (Negative); Hepatitis C Antibody Negative (Negative)
[2025-06-18] MEDS: PIPERACILLIN-TAZOB 3.375GM 100 ML IV SCH ×2 (12:14→22:04)
--- NOTE | 2025-06-18 13:55 | DVHINCON2 ---
GI Consult Consult Note GI consult note Date of Consultation: 06/18/2025 Chief Complaint: Elevated LFT Referring Physician: Dr. Pathak H&P: 39-year-old male with past medical history of seizure presented to ER with ALOC Patient has elevated LFTs No abdominal pain. Denies nausea or vomiting. No hematemesis. Patient admits to having loose stool. No melena or red blood in stool. Denies alcohol use. Denies excessive Tylenol use. No history of elevated LFTs in past Past Medical History: Seizure Past Surgical History: None Social History: NO smoking, drinking ETOH + marijuana Family History: Noncontributory Review of Systems: Constitutional: no fever, chill, weight loss HEENT: no eye pain, no hearing loss, no oral lesion, no scleral icterus Heart: no chest pain, no chest pressure Lung: no cough, no dyspnea with exertion Abdomen: see HPI Neurological:+ seizure Physical exam: General: NAD, AAOX3 Chest: lung perez clear to auscultation Heart: RRR, no murmur Abdomen: non-distended, no tenderness to palpation, +BS Labs: Test 06/17/25 06:23 Range/Units Serum Glucose 96 74-106 mg/dL Imaging: CT abdomen pelvis IMPRESSION: 1. Limited examination due to motion artifact and beam hardening artifact as well as lack of intravenous or oral contrast. 2. Moderate circumferential thickening of the bladder wall with mercedes catheter in place. Correlate clinically to exclude cystitis. 3. No small bowel obstruction. 4. No CT evidence for acute appendicitis given the limitations of the examination. 5. Focal areas of consolidation in the lower lobes bilaterally, may be seen with pneumonia or aspiration in the appropriate clinical setting. Liver ultrasound IMPRESSION: Unremarkable right upper quadrant ultrasound. Assessment: Acute metabolic encephalopathy Seizures Pneumonia Elevated LFTs Plan: Discussed with Dr. Allen Reviewed labs, hepatitis panel negative CT and ultrasound of liver reviewed Monitor labs in a.m. Avoid hepatotoxic medications We will continue to monitor patient Plan discussed with patient and mother at bedside Thank you for this consult Date of Service: Jun 18, 2025 Billing Provider: MARY CROCKETT Common Visit Codes: CONSULT ONLY Consultation Codes: [id number] CONSULT <45MIN MARY CROCKETT Jun 18, 2025 13:55
--- NOTE | 2025-06-18 14:06 | DVHPNRES ---
Progress Note Date Seen: Jun 18, 2025 Resident Creating Document: CAROLYN SENA RESIDENT Medical Necessity Reason Pt with a Central, PICC or Fol: No Subjective Review of Systems 39-year-old male comes to the ED with a history of hematemesis and an episode of witnessed seizure by the mother. Reports the patient had a seizure with involuntary head and limbs movement, bladder incontinence. One abrasion omega was present above upper lip and right-sided forehead followed by the seizure. The mother reports the patient had a similar episode 1 year ago, he had to be admitted in the hospital for 3 days to stabilize. He was prescribed levetiracetam or Keppra. Patient discontinued the medications on his own, because of some side effects like anxiety, depression and mood changes. The patient tapered himself off of the medication without any physician consultation. The patient reports having an episode of blood mixed vomiting, no further vomiting since yesterday. The patient reports having productive cough for 2 days. Patient denies any chest pain, shortness of breath, fever or any other complaints. Past medical history: Seizure Smoking: None Alcohol: His last alcohol intake was 1 and half year ago. He used to drink occasionally. Drugs: Active marijuana use Lives with family 06/18 interval events: The patient reports having some postnasal drip. He does not have any chest pain, fever, shortness of breaths, abdominal pain or any other complaints today. Review of systems: The patient was seen and examined at the bedside. Overnight events were reviewed. Review of system as above. No new Complaints reported. Rest of the ROS is negative. Objective vital signs Vital Sign Date Time Temp Pulse Resp B/P (MAP) Pulse Ox O2 Delivery O2 Flow Rate FiO2 06/18/25 13:00 98.3 92 17 134/84 (101) 97 98.3 06/18/25 08:00 Room Air* 0 21 Total Intake and Output 06/17/25 06/17/25 06/18/25 15:00 23:00 07:00 Intake Total 100 ml 700 ml 560 ml Balance 100 ml 700 ml 560 ml medications Current Medications Medications Dose Ordered Sig/Richard Route Start Time Stop Time Status Last Admin Dose Admin Ondansetron HCl 4 mg Q4HP PRN IV 06/15/25 14:00 Docusate Sodium 100 mg BIDPRN PRN PO 06/15/25 14:00 Nitroglycerin 0.4 mg Q5MINP PRN SL 06/15/25 14:00 Morphine Sulfate 2 mg Q30M PRN IV 06/15/25 14:00 Lorazepam 1 mg Q2HP PRN IV 06/15/25 14:00 Alprazolam 0.5 mg Q8HPRN PRN PO 06/15/25 15:30 06/15/25 15:46 0.5 MG Lacosamide 50 mg BID PO 06/16/25 22:00 06/18/25 09:39 50 MG Doxycycline Hyclate 100 ml @ 50 mls/hr Q12H IV 06/16/25 09:30 06/18/25 09:01 50 MLS/HR Patient Own Medication 1 BID PO 06/16/25 22:00 UNV Piperacillin Sod/ Tazobactam Sod 100 ml @ 25 mls/hr Q6HR IV 06/18/25 12:00 06/18/25 12:14 25 MLS/HR laboratory and microbiology Laboratory Tests 06/18/25 06:25 Test 06/18/25 06:25 Range/Units Serum Glucose 97 74-106 mg/dL Microbiology Date/Time Source Procedure Growth Status 06/15/25 11:15 Blood Blood Culture - Preliminary NO GROWTH AFTER 72 HOURS OF INCUBATION. Resulted 06/15/25 10:00 Voided Urine Urine Culture - Final Complete Problem List/Assessment/Plan Problem List/Assessment/Plan Acuue Metabolic encephalopathy due to seizures # ? Status epileptics # Generalized tonic-clonic seizure -Head CT: Negative -lorazepam -urology on board, advised supportive treatment, EEG and trial of Vimpat 50 mg b.i.d. - Driving issues discussed # ?Sepsis due to below Pneumonia due to Gram-positive or negative organism Aspiration pneumonia? -Chest x-ray revealed mild interstitial opacities pulmonary edema or atypical infection. -CT abdomen pelvis: Diaz in place with the bladder thickening no bowel obstruction no appendicitis. Focal areas of consolidation in the lower lobes of bilateral lungs possibly pneumonia or aspiration. -Piperacillin-tazobactam and doxycycline. -pancultures ordered, pending Transaminitis AST, ALT elevated -Abdominal ultrasound: Unremarkable -lipase 35 -ammonia 11 -hepatitis panel ordered,pending results -GI consult was done. GI prophylaxis: Not indicated DVT prophylaxis: Not indicated Diet: Regular Goals of care discussed with the patient for more than 27 minutes: Full code status Case discussed with , patient and RN Plan discussed with: Patient, Other (RN) CAROLYN SENA Jun 18, 2025 14:06 VLADIMIR ORTIZ MD Jun 21, 2025 11:16
[2025-06-18] MEDS: POTASSIUM CHL 20 Meq TABLET PO ONE (14:42)
--- NOTE | 2025-06-18 20:07 | DVHPNRES ---
Progress Note Date Seen: Jun 18, 2025 Resident Creating Document: CAROLYN SENA RESIDENT Medical Necessity Reason Pt with a Central, PICC or Fol: No Subjective Review of Systems 39-year-old male comes to the ED with a history of hematemesis and an episode of witnessed seizure by the mother. Reports the patient had a seizure with involuntary head and limbs movement, bladder incontinence. One abrasion omega was present above upper lip and right-sided forehead followed by the seizure. The mother reports the patient had a similar episode 1 year ago, he had to be admitted in the hospital for 3 days to stabilize. He was prescribed levetiracetam or Keppra. Patient discontinued the medications on his own, because of some side effects like anxiety, depression and mood changes. The patient tapered himself off of the medication without any physician consultation. The patient reports having an episode of blood mixed vomiting, no further vomiting since yesterday. The patient reports having productive cough for 2 days. Patient denies any chest pain, shortness of breath, fever or any other complaints. Past medical history: Seizure Smoking: None Alcohol: His last alcohol intake was 1 and half year ago. He used to drink occasionally. Drugs: Active marijuana use Lives with family 06/18 interval events: The patient reports having some postnasal drip. He does not have any chest pain, fever, shortness of breaths, abdominal pain or any other complaints today. Review of systems: The patient was seen and examined at the bedside. Overnight events were reviewed. Review of system as above. No new Complaints reported. Rest of the ROS is negative. Objective vital signs Vital Sign Date Time Temp Pulse Resp B/P (MAP) Pulse Ox O2 Delivery O2 Flow Rate FiO2 06/18/25 13:00 98.3 92 17 134/84 (101) 97 98.3 06/18/25 08:00 Room Air* 0 21 Total Intake and Output 06/17/25 06/17/25 06/18/25 15:00 23:00 07:00 Intake Total 100 ml 700 ml 560 ml Balance 100 ml 700 ml 560 ml medications Current Medications Medications Dose Ordered Sig/Richard Route Start Time Stop Time Status Last Admin Dose Admin Ondansetron HCl 4 mg Q4HP PRN IV 06/15/25 14:00 Docusate Sodium 100 mg BIDPRN PRN PO 06/15/25 14:00 Nitroglycerin 0.4 mg Q5MINP PRN SL 06/15/25 14:00 Morphine Sulfate 2 mg Q30M PRN IV 06/15/25 14:00 Lorazepam 1 mg Q2HP PRN IV 06/15/25 14:00 Alprazolam 0.5 mg Q8HPRN PRN PO 06/15/25 15:30 06/15/25 15:46 0.5 MG Lacosamide 50 mg BID PO 06/16/25 22:00 06/18/25 09:39 50 MG Doxycycline Hyclate 100 ml @ 50 mls/hr Q12H IV 06/16/25 09:30 06/18/25 09:01 50 MLS/HR Patient Own Medication 1 BID PO 06/16/25 22:00 UNV Loratadine 10 mg DAILY PO 06/19/25 10:00 Piperacillin Sod/ Tazobactam Sod 100 ml @ 25 mls/hr Q8HR IV 06/18/25 22:00 Examination Physical examination: General Appearance: Alert, Oriented X3, Cooperative, No acute distress HEENT: Atraumatic, PERRLA, EOMI, Mucous membrane moist/pink Respiratory: Clear to auscultation, Normal air movement Cardiovascular: Regular rate, Normal S1, Normal S2, No murmurs, no chest wall tenderness Abdominal: Normal bowel sounds, Soft, No tenderness, No hepatospenomegaly, No masses Extremities: No clubbing, No cyanosis, No edema, Normal pulses, No tenderness/swelling Skin: No rashes, No breakdown, No significant lesion Neuro: Normal gait, Normal speech, Strength at 5/5 X4 ext, Normal tone, Sensation intact, Cranial nerves 3-12 NL, Reflexes 2+ Psych/Mental Status: Mental status NL, Mood NL laboratory and microbiology Laboratory Tests 06/18/25 06:25 Test 06/18/25 06:25 Range/Units Serum Glucose 97 74-106 mg/dL Microbiology Date/Time Source Procedure Growth Status 06/15/25 11:15 Blood Blood Culture - Preliminary NO GROWTH AFTER 72 HOURS OF INCUBATION. Resulted 06/15/25 10:00 Voided Urine Urine Culture - Final Complete Labs and/or images reviewed: Labs reviewed by me, Image(s) reviewed by me Problem List/Assessment/Plan Problem List/Assessment/Plan Acute Metabolic encephalopathy due to seizures # ? Status epileptics # Generalized tonic-clonic seizure -Head CT: Negative -lorazepam -urology on board, advised supportive treatment, EEG and trial of Vimpat 50 mg b.i.d. - Driving issues discussed # ?Sepsis due to below Pneumonia due to Gram-positive or negative organism Aspiration pneumonia? -Chest x-ray revealed mild interstitial opacities pulmonary edema or atypical infection. -CT abdomen pelvis: Diaz in place with the bladder thickening no bowel obstruction no appendicitis. Focal areas of consolidation in the lower lobes of bilateral lungs possibly pneumonia or aspiration. -Piperacillin-tazobactam and doxycycline. -pancultures ordered, pending Transaminitis AST, ALT elevated -Abdominal ultrasound: Unremarkable -lipase 35 -ammonia 11 -hepatitis panel ordered,pending results -GI consult was pending GI prophylaxis: Not indicated DVT prophylaxis: Not indicated Diet: Regular Goals of care discussed with the patient for more than 27 minutes: Full code status Case discussed with , patient and RN Plan discussed with: Patient Date of Service: Jun 18, 2025 Billing Provider: VLADIMIR ORTIZ MD Common Visit Codes: [id number] INP/OBS CARE(HIGH) CAROLYN SENA RESIDENT Jun 18, 2025 20:07 DASHAWN ISRAEL RESIDENT Jun 18, 2025 20:12 VLADIMIR ORTIZ MD Jun 19, 2025 00:14
--- NOTE | 2025-06-18 21:01 | DVHPN2 ---
Progress Note - Dictate Date Seen: Jun 18, 2025 Medical Necessity Reason Pt with a Central, PICC or Fol: No Subjective Mr. Bergeron is a 39 years old right-handed gentleman with a history of chronic low back pain, the patient was admitted to the [facility] on 06/15/2025 for altered mental status I saw him on 05/08/2024 for seizure, I will saw him in my office briefly I have seen and examined the patient, discussed with his nurse, I have talked to his mother, he is alert and fully oriented, no seizure activity Blood culture, 06/18/2025: Urinalysis, 06/15/25: WBC: 1, urine leukocyte esterase: Negative UDS, 06/15/2025: Benzo, cannabinoids Plasma alcohol, 06/15/2025: <3 WBC/HB/PLT/MCV, 06/15/2025: 32.4/14.9/198/91.7, 06/16/2025: 42918/14.1/177/in the 0.9 BMP 06/15/2025: Unremarkable TBI/AST/ALT/AP, 05/26/2025: 1.8/271/55/39, 06/18/2025: 1.5/710/455/35 LDH, 06/18/25: 1375 Hepatitis panel, 06/17/2025: Negative Lactic acid, 06/15/2025: 3, 2.1 Ultrasound, abdomen, 06/17/2025: Unremarkable right upper quadrant ultrasound. CT head, 05/08/24: No CT evidence of acute intracranial abnormality CT head, 06/15/2025: No CT evidence of acute intracranial abnormality MRI head, 05/13/2024: No evidence of acute intracranial abnormality. No abnormality identified to explain the patient's seizure like activity vital signs Vital Sign Date Time Temp Pulse Resp B/P (MAP) Pulse Ox O2 Delivery O2 Flow Rate FiO2 06/18/25 13:00 98.3 92 17 134/84 (101) 97 98.3 06/18/25 08:00 Room Air* 0 21 Total Intake and Output 06/17/25 06/17/25 06/18/25 15:00 23:00 07:00 Intake Total 100 ml 700 ml 560 ml Balance 100 ml 700 ml 560 ml medications Current Medications Medications Dose Ordered Sig/Richard Route Start Time Stop Time Status Last Admin Dose Admin Ondansetron HCl 4 mg Q4HP PRN IV 06/15/25 14:00 Docusate Sodium 100 mg BIDPRN PRN PO 06/15/25 14:00 Nitroglycerin 0.4 mg Q5MINP PRN SL 06/15/25 14:00 Morphine Sulfate 2 mg Q30M PRN IV 06/15/25 14:00 Lorazepam 1 mg Q2HP PRN IV 06/15/25 14:00 Alprazolam 0.5 mg Q8HPRN PRN PO 06/15/25 15:30 06/15/25 15:46 0.5 MG Lacosamide 50 mg BID PO 06/16/25 22:00 06/18/25 09:39 50 MG Doxycycline Hyclate 100 ml @ 50 mls/hr Q12H IV 06/16/25 09:30 06/18/25 09:01 50 MLS/HR Patient Own Medication 1 BID PO 06/16/25 22:00 UNV Loratadine 10 mg DAILY PO 06/19/25 10:00 Piperacillin Sod/ Tazobactam Sod 100 ml @ 25 mls/hr Q8HR IV 06/18/25 22:00 objective General: the patient is well developed and nourished. No acute distress. MENTAL STATUS: Subjective SPEECH, LANGUAGE, HIGHER CORTICAL FUNCTION: no aphasia or dysathria. CRANIAL NERVES:Pupils are equal, round and reactive. EOMs full and conjugate. Facial sensation intact in all three divisions bilaterally. Mandibular strength intact. Facial muscles symmetrical and strength intact. SENSATION: Sensation to touch and pinprick is normal. MOTOR: Normal tone in the upper and lower extremity. Normal muscle bulk. No fasciculations. No abnormal movements or posturing. Muscle strength of the major groups in the extremities is 5/5. REFLEXES: Deep tendon reflexes normal and symmetrical. No pathological reflexes. CEREBELLAR/COORDINATION: Finger to nose is normal bilaterally. GAIT/STATION: deferred laboratory and microbiology Laboratory Tests 06/18/25 06:25 Test 06/18/25 06:25 Range/Units Serum Glucose 97 74-106 mg/dL Problem List ALOC/Coma Status epileptics Generalized tonic-clonic seizure The one witnessed on 06/15/25 was atypical to epileptic seizure Partial simple seizure Leukocytosis Lactic acidosis, secondary seizure activity, rule out sepsis Assessment/Plan Monitoring Supportive treatment EEG Vimpat 50 mg b.i.d. and accelerating Ativan for seizure breakthrough IV antibiotics GI evaluation Driving issues discussed Follow up with his doctors on discharge More recommendation per clinical course This medical document was created using an electronic medical record system with [employer] dictation system. Although this document has been carefully reviewed, there may still be some phonetic and typographical errors. These areas are purely typographical due to imperfections of the software programs, and do not reflect any compromise in the patient's medical care. Prognosis poor Plan discussed with: Patient, Other ELENA PRYOR MD Jun 18, 2025 21:01
[2025-06-18] MEDS: POTASSIUM EFFERVESENT TAB 25 MEQ PO ONE (21:55)
--- NOTE | 2025-06-19 00:12 | CODING ---
Date of Service: Jun 17, 2025 Billing Provider: VLADIMIR ORTIZ MD Common Visit Codes: [id number] INP/OBS CARE(HIGH) VLADIMIR ORTIZ MD Jun 19, 2025 00:12
[2025-06-19 01:00] VITALS: BP 124/82; PULSE 85; RESP 19; TEMP 98; O2SAT 95
[2025-06-19 05:00] VITALS: BP 121/77; PULSE 76; RESP 18; TEMP 97.5; O2SAT 96
[2025-06-19 07:29] LABS: Hematocrit 40.8 % (41.0-53.0); Hemoglobin 14.5 g/dL (13.5-17.5); Mean Corpuscular Hemoglobin 31.7 pg (28.0-32.0); Mean Corpuscular Volume 88.9 fL (80.0-100.0); Nucleated Red Blood Cells % 0.0 %
[2025-06-19 07:40] LABS: Anion Gap 9 (5-15); BUN/Creatinine Ratio 5.7 (10.0-20.0); Calcium 10.2 mg/dL (8.7-10.4); Carbon Dioxide 29 mmol/L (20-31); Chloride 104 mmol/L (98-107); Glucose 94 mg/dL (74-106); Potassium 3.7 mmol/L (3.5-5.1); Sodium 142 mmol/L (136-145); Total Protein 6.4 g/dL (5.7-8.2)
[2025-06-19 07:41] LABS: Albumin 4.2 g/dL (3.2-4.8)
[2025-06-19 07:44] LABS: Alanine Aminotransferase 178 U/L (7-40); Alkaline Phosphatase 39 U/L (46-116); Bilirubin, Total 1.9 mg/dL (0.2-1.0); Blood Urea Nitrogen 5 mg/dL (9-23); Magnesium 1.5 mg/dL (1.6-2.6)
[2025-06-19] MEDS: LORATADINE 10 MG TAB PO ONE (07:52)
[2025-06-19 08:00] VITALS: PULSE 80
[2025-06-19 09:00] VITALS: BP 129/80; PULSE 89; RESP 17; TEMP 97.5; O2SAT 96
[2025-06-19] MEDS: MAGNESIUM SULFATE 1GM/100ML 100 ML IV SCH (10:15)
[2025-06-19] MEDS: POTASSIUM EFFERVESENT TAB 25 MEQ PO ONE (10:15)
[2025-06-19] MEDS: LORATADINE 10 MG TAB PO SCH (10:15)
--- NOTE | 2025-06-19 15:20 | DVHDSRES ---
Discharge Summary Date of Admission Resident Creating Document: CAROLYN SENA Jun 15, 2025 at 13:46 Date of Discharge: Jun 19, 2025 Admitting Diagnosis Seizure disorder Labs/Diagnostic Data: Laboratory Results Test 06/19/25 05:34 06/18/25 06:25 06/18/25 06:21 06/17/25 11:55 White Blood Count 9.6 10^3/uL (4.4-10.8) Red Blood Count 4.59 10^6/uL (4.5-5.90) Hemoglobin 14.5 g/dL (13.5-17.5) Hematocrit 40.8 % (41.0-53.0) Mean Corpuscular Volume 88.9 fL (80.0-100.0) Mean Corpuscular Hemoglobin 31.7 pg (28.0-32.0) Mean Corpuscular Hemoglobin Concent 35.6 g/dL (32.0-36.0) Red Cell Distribution Width 13.5 % (11.8-14.3) Platelet Count 186 10^3/uL (140-450) Mean Platelet Volume 10.4 fL (6.9-10.8) Neutrophils (%) (Auto) 76.8 % (37.0-80.0) Lymphocytes (%) (Auto) 11.6 % (10.0-50.0) Monocytes (%) (Auto) 10.6 % (0.0-12.0) Eosinophils (%) (Auto) 0.6 % (0.0-7.0) Basophils (%) (Auto) 0.4 % (0.0-2.0) Neutrophils # (Auto) 7.4 10 ^3/uL (1.6-8.6) Lymphocytes # (Auto) 1.1 10 ^3/uL (0.4-5.4) Monocytes # (Auto) 1.0 10 ^3/uL (0-1.3) Eosinophils # (Auto) 0.1 10 ^3/uL (0-0.8) Basophils # (Auto) 0 10 ^3/uL (0-0.2) Nucleated Red Blood Cells 0.0 % Sodium Level 142 mmol/L (136-145) Potassium Level 3.7 mmol/L (3.5-5.1) Chloride Level 104 mmol/L (98-107) Carbon Dioxide Level 29 mmol/L (20-31) Anion Gap 9 (5-15) Blood Urea Nitrogen 5 mg/dL (9-23) Creatinine 0.88 mg/dL (0.700-1.30) Glomerular Filtration Rate Calc 112 mL/min (>90) BUN/Creatinine Ratio 5.7 (10.0-20.0) Serum Glucose 94 mg/dL (74-106) Calcium Level 10.2 mg/dL (8.7-10.4) Magnesium Level 1.5 mg/dL (1.6-2.6) Total Bilirubin 1.9 mg/dL (0.2-1.0) Aspartate Amino Transferase (AST) 615 U/L (13-40) Alanine Aminotransferase (ALT) 178 U/L (7-40) Alkaline Phosphatase 39 U/L (46-116) Total Protein 6.4 g/dL (5.7-8.2) Albumin 4.2 g/dL (3.2-4.8) Haptoglobin 208 mg/dL (17-317) Hemoglobin A1c 5.2 % A1C (<5.7) Lactate Dehydrogenase 1375 U/L (120-246) Reticulocyte Count (auto) 0.98 % (0.5-1.5) Ammonia 11 umol/L (11-32) Test 06/17/25 06:23 06/16/25 11:02 06/15/25 11:00 06/15/25 10:02 Direct Bilirubin 0.7 mg/dL (<0.3) Lipase 35 U/L (12-53) Hepatitis A IgM Antibody Negative Hepatitis B Surface Antigen Negative (Negative) Hepatitis B Core IgM Antibody Negative (Negative) Hepatitis C Antibody Negative (Negative) Prothrombin Time 11.6 sec (9.3-11.8) Prothrombin Time INR 1.11 (0.9-1.15) Activated Partial Thromboplast Time 27.3 SEC (24.5-34.5) Lactic Acid Level 1.2 mmol/L (0.4-2.0) Urine Opiates Screen Neg (NEGATIVE) Urine Fentanyl Screen Neg (NEGATIVE) Urine Barbiturates Screen Neg (NEGATIVE) Urine Phencyclidine Screen Neg (NEGATIVE) Urine Amphetamines Screen Neg (NEGATIVE) Urine Benzodiazepines Screen Pos (NEGATIVE) Urine Cocaine Screen Neg (NEGATIVE) Urine Cannabinoids Screen Pos (NEGATIVE) Differential Total Cells Counted 100.0 (100) Neutrophils % (Manual) 90 (37.0-80.0) Band Neutrophils % (Manual) 0 Lymphocytes % (Manual) 1 (10.0-50.0) Monocytes % (Manual) 9 (0-12) Eosinophils % (Manual) 0 (0-7) Basophils % (Manual) 0 (0.0-2.0) Metamyelocytes % (manual) 0 Myelocytes % (Manual) 0 Promyelocytes % (Manual) 0 Blast Cells % (Manual) 0 Reactive Lymphocytes 0 Platelet Estimate Adequate Plasma/Serum Blood Alcohol < 3.0 mg/dL (<10) Test 06/15/25 10:00 Urine Color Colorless (Yellow) Urine Clarity Clear (Clear) Urine pH 5.0 (5.0-9.0) Urine Specific [place] 1.014 (1.001-1.035) Urine Protein Trace (Negative) Urine Ketones 1+ (Negative) Urine Blood 2+ /uL (Negative) Urine Nitrite Negative (Negative) Urine Bilirubin Negative (Negative) Urine Urobilinogen Normal mg/dL (Negative) Urine Leukocyte Esterase Negative /uL (Negative) Urine RBC 1 /hpf (0 - 3) Urine Microscopic WBC 1 /HPF (0-3) Urine Squamous Epithelial Cells None seen /hpf (<5) Urine Bacteria None seen /hpf (None Seen) Urine Glucose Normal mg/dL (Normal) Other Laboratory Tests 06/19/25 05:34 Brief Hx & Hospital Course: The patient was admitted for evaluation of altered mental status and witnessed generalized tonic-clonic seizures, raising concern for acute metabolic encephalopathy, possibly secondary to status epilepticus. Head CT was negative, and the patient was treated with lorazepam. EEG was pending, and a trial of Vimpat 50 mg BID was initiated. Neurology was consulted and recommended supportive care. Driving restrictions were discussed due to seizure activity. Concurrently, there was concern for sepsis, potentially due to pneumonia or aspiration. Imaging revealed bilateral lower lobe consolidations and mild interstitial opacities. The patient was started on piperacillin-tazobactam and doxycycline; pancultures were obtained and results were pending. Transaminitis was noted with elevated AST and ALT; however, abdominal ultrasound was unremarkable, lipase and ammonia levels were within normal limits, and a hepatitis panel was ordered. GI consultation was pending at the time of discharge. GI and DVT prophylaxis were deemed not indicated, and the patient was on a regular diet. Despite being informed of the potential risks, the patient elected to leave the hospital against medical advice. Physical exam was not performed because patient left AMA. Operations or Procedures Liver ultrasound: unremarkable Chest x-ray:Mild interstitial opacities suggestive of pulmonary edema or atypical infection. Abdomen pelvis CT: 1. Limited examination due to motion artifact and beam hardening artifact as well as lack of intravenous or oral contrast. 2. Moderate circumferential thickening of the bladder wall with mercedes catheter in place. Correlate clinically to exclude cystitis. 3. No small bowel obstruction. 4. No CT evidence for acute appendicitis given the limitations of the examination. 5. Focal areas of consolidation in the lower lobes bilaterally, may be seen with pneumonia or aspiration in the appropriate clinical setting. Head CT: No CT evidence of acute intracranial abnormality Condition at Discharge: Undetermined Final Diagnosis/Problems List Acute metabolic encephalopathy due to seizures Status epilepticus Generalized tonic-clonic seizures Sepsis due to pneumonia due to Gram-positive or Gram-negative organism Aspiration pneumonia Transaminitis Hypomagnesemia repleted Discharge Disposition: AMA Discharge Instruct/Medications No Active Prescriptions or Reported Meds Discharge Statement: "Patient was advised to return to the ER or call 911 if any headaches, dizziness, shortness of breath, chest pain, abdominal pain, bleeding, fevers, or worsening of medical condition. Patient was counseled about treatment plan, medications, possible side effects, patientverbalized understanding. All questions were answered to the best of my ability. This discharge took greater then 30 minutes in planning, reviewing documentation, counseling the patient, and discussing with other team members." ASSESSMENT ASSESSMENT Assessment Date of Service: Jun 19, 2025 Billing Provider: VLADIMIR ORTIZ MD Common Visit Codes: [id number] DISCH DAY >30min CAROLYN SENA Jun 19, 2025 15:20 VLADIMIR ORTIZ MD Jun 21, 2025 10:52
== END 2025-06-19 12:24 | disposition left against medical advice (07) | DRG 720 ==
LOC: ER 09:29 → EDBD 09:29 → OVERFLOW 13:46 → TELE-EAST 22:18
PROVIDERS: ADMIT Internal Medicine; ATTEND Emergency Medicine
DX: A41.59 Other Gram-negative sepsis (principal); J96.01 Acute respiratory failure with hypoxia; J69.0 Pneumonitis due to inhalation of food and vomit; J15.69 Pneumonia due to other Gram-negative bacteria; E87.20 Acidosis, unspecified; G40.401 Other generalized epilepsy and epileptic syndromes, not intractable, with status epilepticus; J15.9 Unspecified bacterial pneumonia; E83.42 Hypomagnesemia; R79.89 Other specified abnormal findings of blood chemistry; R74.01 Elevation of levels of liver transaminase levels; Z88.8 Allergy status to other drugs, medicaments and biological substances; Z53.29 Procedure and treatment not carried out because of patient's decision for other reasons; Z83.3 Family history of diabetes mellitus; Z82.49 Family history of ischemic heart disease and other diseases of the circulatory system; Z80.1 Family history of malignant neoplasm of trachea, bronchus and lung
CPT/HCPCS: 36415; 70450; 71045; 74176; 76705; 80048; 80053; 80074; 80076; 80307; 80320; 81001; 82140; 83010; 83036; 83605; 83615; 83690; 83735; 85007; 85025; 85027; 85045; 85610; 85730; 86885; 87040; 87086; 95819; 96365; 96375; 99291; 99292; G0378; J2543; J3490

== ENCOUNTER → 2025-07-01 | Outpatient (CLI) | payer MEDICAID ==
[2025-07-01 14:26] LABS: Hematocrit 38.9 % (41.0-53.0); Hemoglobin 13.3 g/dL (13.5-17.5); Mean Corpuscular Hemoglobin 31.3 pg (28.0-32.0); Mean Corpuscular Volume 91.7 fL (80.0-100.0); Nucleated Red Blood Cells % 0.0 %
[2025-07-01 14:43] LABS: Alanine Aminotransferase 39 U/L (7-40); Albumin 4.4 g/dL (3.2-4.8); Anion Gap 5 (5-15); BUN/Creatinine Ratio 11.2 (10.0-20.0); Bilirubin, Total 0.5 mg/dL (0.2-1.0); Blood Urea Nitrogen 12 mg/dL (9-23); Calcium 9.1 mg/dL (8.7-10.4); Chloride 104 mmol/L (98-107); Glucose 85 mg/dL (74-106); Potassium 4.1 mmol/L (3.5-5.1); Sodium 141 mmol/L (136-145); Total Protein 6.6 g/dL (5.7-8.2)
[2025-07-01 14:45] LABS: Alkaline Phosphatase 40 U/L (46-116); Carbon Dioxide 32 mmol/L (20-31); Creatine Kinase IFCC 206 U/L (46-171)
[2025-07-01 14:48] LABS: Urine Protein, UAD Negative (Negative)
== END | disposition home or self-care (01) ==
LOC: LAB 14:12
PROVIDERS: ATTEND Internal Medicine
DX: R00.2 Palpitations (principal); R56.9 Unspecified convulsions
CPT/HCPCS: 36415; 80053; 81001; 82550; 85025

== ENCOUNTER 2025-07-07 06:29 | Outpatient (CLI) | payer MEDICAID | END 2025-07-07 17:00 | disposition home or self-care (01) | LOC: LAB 06:29 | PROVIDERS: ATTEND Internal Medicine | DX: R74.8 Abnormal levels of other serum enzymes (principal) | CPT/HCPCS: 36415; 82550 ==

== ENCOUNTER → 2025-07-16 | Outpatient (CLI) | payer MEDICAID ==
[2025-07-16 07:32] LABS: Urine Protein, UAD Negative (Negative)
[2025-07-16 07:39] LABS: Hematocrit 42.3 % (41.0-53.0); Hemoglobin 14.5 g/dL (13.5-17.5); Mean Corpuscular Hemoglobin 31.5 pg (28.0-32.0); Mean Corpuscular Volume 91.8 fL (80.0-100.0); Nucleated Red Blood Cells % 0.1 %
[2025-07-16 08:33] LABS: Uric Acid 5.9 mg/dL (3.7-9.2)
== END | disposition home or self-care (01) ==
LOC: LAB 06:41
PROVIDERS: ATTEND Internal Medicine
DX: I51.7 Cardiomegaly (principal); I47.10 Supraventricular tachycardia, unspecified; R56.9 Unspecified convulsions
CPT/HCPCS: 36415; 81001; 84550; 85025; 85652; 86141; 86160; 86225; 86235; 86376; 86431